=== PATIENT | female | born 1965 | race Caucasian/White ===

== ENCOUNTER 2017-08-24 19:22 | Emergency (ER) | payer OTHER ==
[~2017-08-24] VITALS: Ht 170.2 cm; Wt 102.9 kg
[2017-08-24 19:27] VITALS: TEMP 36.8; Ht 170.2 cm; Wt 102.9 kg
[2017-08-24] MEDS ORDERED: KETOROLAC TROMETHAMINE 30 MG/ML VIAL IV STA (19:38)
[2017-08-24] MEDS ORDERED: KETOROLAC TROMETHAMINE 30 MG/ML VIAL ONE (19:41)
[2017-08-24 20:15] LABS: BASO % 0.4 %; BASO ABS # 0.04 K/uL (0-0.2); EOS % 1.7 %; EOS ABS # 0.16 K/uL (0-0.5); HEMATOCRIT 39.7 % (37-47); HEMOGLOBIN 13.5 g/dL (12.0-16.0); IG# 0.02 K/uL (0.00-0.02); LYMPH % 38.1 %; LYMPH ABS # 3.51 K/uL (1.2-3.4); MEAN CELL VOLUME 85.9 fL (80-100); MEAN CORPUSCULAR HEMOGLOBIN 29.2 pg (25-34); MEAN PLATELET VOLUME 9.3 fL (7.4-10.4); MONO % 10.2 %; MONO ABS # 0.94 K/uL (0.11-0.59); NEUT % 49.4 %; NEUT ABS # 4.54 K/uL (1.4-6.5); PLATELET COUNT 343 K/uL (130-400); RED CELL DISTRIBUTION WIDTH CV 13.1 % (11.5-14.5); RED CELL DISTRIBUTION WIDTH SD 41.1 fL (36.4-46.3); WHITE BLOOD COUNT 9.21 K/uL (4.8-10.8)
[2017-08-24 20:33] LABS: ALBUMIN 3.4 gm/dl (3.4-5.0); CALCIUM 8.9 mg/dl (8.5-10.1); CREATININE 0.76 mg/dl (0.60-1.20); POTASSIUM 3.9 mmol/L (3.5-5.1)
--- NOTE | 2017-08-24 20:35 | DIAGNOSTIC IMAGING REPORT ---
R VENOUS DOPP LOWER EXT UNILAT CLINICAL HISTORY: R medial thigh pain pain TECHNIQUE: Venous Doppler COMPARISON STUDY: None FINDINGS: Normal study IMPRESSION: Normal study The above report was generated using voice recognition software. It may contain grammatical, syntax or spelling errors. Electronically signed by: Avel Jim M.D. 08/24/2017 8:33 PM Dictated Date/Time: 08/24/2017 8:33 PM
[2017-08-24 20:38] LABS: CKMB 2.4 ng/ml (0.5-3.6); TOTAL PROTEIN 7.5 gm/dl (6.4-8.2)
[2017-08-24 21:25] VITALS: BP 115/76; PULSE 76; O2SAT 97
--- NOTE | 2017-08-24 21:27 | DIAGNOSTIC IMAGING REPORT ---
R FEMUR 2 VIEWS ROUTINE CLINICAL HISTORY: Low back pain and R medial thigh pain pain COMPARISON: None. DISCUSSION: The bones and joint spaces appear intact. There is no evidence of fracture, dislocation or bony disease. There is no evidence for soft tissue swelling. IMPRESSION: Negative study. The above report was generated using voice recognition software. It may contain grammatical, syntax or spelling errors. Electronically signed by: Avel Jim M.D. 08/24/2017 9:26 PM Dictated Date/Time: 08/24/2017 9:25 PM
--- NOTE | 2017-08-24 21:28 | DIAGNOSTIC IMAGING REPORT ---
L-SPINE MIN 4 VIEWS ROUTINE HISTORY: Pain Low back pain and R medial thigh pain COMPARISON: None. FINDINGS: There is no fracture. No subluxation. Mild degenerative disc change throughout. IMPRESSION: No fracture or subluxation within the lumbar spine. Mild degenerative disc change. The above report was generated using voice recognition software. It may contain grammatical, syntax or spelling errors. Electronically signed by: Avel Jim M.D. 08/24/2017 9:27 PM Dictated Date/Time: 08/24/2017 9:27 PM
--- NOTE | 2017-08-24 21:34 | EMERGENCY ROOM VISIT NOTE ---
History First contact with patient: 19:31 Chief Complaint: LEG PAIN,LEG INJURY Stated Complaint: LEG PAIN History of Present Illness The patient is a 52 year old female who presents to the Emergency Room with complaints of "leg pain/injury". She presents to us today with right medial thigh pain which began on Wednesday. She rates her pain as a 8/10. She denies any trauma. She had a fever yesterday but feels well today. She points to the right medial proximal thigh. It is worse with ambulation. She is taken Advil with minimal relief. She denies any history of blood clots. She does note a past medical history of hypertension. Minimal pinprick sensation in this region. Review of Systems A complete 6-point Review of Systems was discussed with the patient, with pertinent positives and negatives listed in the History of Present Illness. All remaining Review of Systems questions can be considered negative unless otherwise specified. Past Medical/Surgical History HTN Family History No pertinent Social History Smoking Status: Current Every Day Smoker Pt. lives locally with Physical Exam Vital Signs Date Time Temp Pulse Resp B/P (MAP) Pulse Ox O2 Delivery O2 Flow Rate FiO2 08/24/17 21:25 76 18 115/76 97 Room Air 08/24/17 19:27 36.8 81 18 206/99 97 Room Air Physical Exam VITAL SIGNS - Vital signs and nursing notes were reviewed. Stable. GENERAL - 52-year-old female appearing her stated age who is in no acute distress. Communicates well with provider and answers questions appropriately. SKIN - Without rashes. HEAD - NC/AT.Palpebral conjunctiva pink and moist with no injection noted. EARS - No deformities of external structures noted on gross examination bilaterally. NOSE - Midline and without cyanosis. No epistaxis or purulent drainage noted. MOUTH/OROPHARYNX - Without perioral cyanosis. EXTREMITIES - No clubbing or peripheral cyanosis. No pretibial edema present. Tenderness to palpation of the R medial thigh. NO masses or lesions. No rashes. WNL size and shape. +5/5 strength noted in UE/LE bilaterally. NEUROLOGIC - Cranial nerves II through XII grossly intact. Sensory intact to light touch throughout. PSYCH - A&O, and cooperates fully with examiner. Pt is very pleasant and interacts well with examiner. Medical Decision & Procedures ER Provider Diagnostic Interpretation: R VENOUS DOPP LOWER EXT UNILAT CLINICAL HISTORY: R medial thigh pain pain TECHNIQUE: Venous Doppler COMPARISON STUDY: None FINDINGS: Normal study IMPRESSION: Normal study The above report was generated using voice recognition software. It may contain grammatical, syntax or spelling errors. Electronically signed by: Avel Jim M.D. 08/24/2017 8:33 PM Dictated Date/Time: 08/24/2017 8:33 PM L-SPINE MIN 4 VIEWS ROUTINE HISTORY: Pain Low back pain and R medial thigh pain COMPARISON: None. FINDINGS: There is no fracture. No subluxation. Mild degenerative disc change throughout. IMPRESSION: No fracture or subluxation within the lumbar spine. Mild degenerative disc change. The above report was generated using voice recognition software. It may contain grammatical, syntax or spelling errors. Electronically signed by: Avel Jim M.D. 08/24/2017 9:27 PM Dictated Date/Time: 08/24/2017 9:27 PM R FEMUR 2 VIEWS ROUTINE CLINICAL HISTORY: Low back pain and R medial thigh pain pain COMPARISON: None. DISCUSSION: The bones and joint spaces appear intact. There is no evidence of fracture, dislocation or bony disease. There is no evidence for soft tissue swelling. IMPRESSION: Negative study. The above report was generated using voice recognition software. It may contain grammatical, syntax or spelling errors. Electronically signed by: Avel Jim M.D. 08/24/2017 9:26 PM Dictated Date/Time: 08/24/2017 9:25 PM Laboratory Results 08/24/17 19:55 Red Blood Count 4.62, Mean Corpuscular Volume 85.9, Mean Corpuscular Hemoglobin 29.2, Mean Corpuscular Hemoglobin Concent 34.0, Mean Platelet Volume 9.3, Neutrophils (%) (Auto) 49.4, Lymphocytes (%) (Auto) 38.1, Monocytes (%) (Auto) 10.2, Eosinophils (%) (Auto) 1.7, Basophils (%) (Auto) 0.4, Neutrophils # (Auto ) 4.54, Lymphocytes # (Auto) 3.51, Monocytes # (Auto) 0.94, Eosinophils # (Auto ) 0.16, Basophils # (Auto) 0.04 08/24/17 19:55 Test 08/24/17 16:55 08/24/17 19:55 Lyme Disease IgG Antibody NEG (NEG) White Blood Count 9.21 K/uL (4.8-10.8) Red Blood Count 4.62 M/uL (4.2-5.4) Hemoglobin 13.5 g/dL (12.0-16.0) Hematocrit 39.7 % (37-47) Mean Corpuscular Volume 85.9 fL (80-100) Mean Corpuscular Hemoglobin 29.2 pg (25-34) Mean Corpuscular Hemoglobin Concent 34.0 g/dl (32-36) Platelet Count 343 K/uL (130-400) Mean Platelet Volume 9.3 fL (7.4-10.4) Neutrophils (%) (Auto) 49.4 % Lymphocytes (%) (Auto) 38.1 % Monocytes (%) (Auto) 10.2 % Eosinophils (%) (Auto) 1.7 % Basophils (%) (Auto) 0.4 % Neutrophils # (Auto) 4.54 K/uL (1.4-6.5) Lymphocytes # (Auto) 3.51 K/uL (1.2-3.4) Monocytes # (Auto) 0.94 K/uL (0.11-0.59) Eosinophils # (Auto) 0.16 K/uL (0-0.5) Basophils # (Auto) 0.04 K/uL (0-0.2) RDW Standard Deviation 41.1 fL (36.4-46.3) RDW Coefficient of Variation 13.1 % (11.5-14.5) Immature Granulocyte % (Auto) 0.2 % Immature Granulocyte # (Auto) 0.02 K/uL (0.00-0.02) Anion Gap 7.0 mmol/L (3-11) Est Creatinine Clear Calc Drug Dose 106.8 ml/min Estimated GFR () 104.5 Estimated GFR (Non- 90.2 BUN/Creatinine Ratio 12.7 (10-20) Calcium Level 8.9 mg/dl (8.5-10.1) Total Bilirubin 0.4 mg/dl (0.2-1) Aspartate Amino Transf (AST/SGOT) 18 U/L (15-37) Alanine Aminotransferase (ALT/SGPT) 16 U/L (12-78) Alkaline Phosphatase 149 U/L (45-117) Total Creatine Kinase 186 U/L (26-192) Creatine Kinase MB 2.4 ng/ml (0.5-3.6) Creatine Kinase MB Ratio 1.3 (0-3.0) Total Protein 7.5 gm/dl (6.4-8.2) Albumin 3.4 gm/dl (3.4-5.0) Globulin 4.1 gm/dl (2.5-4.0) Albumin/Globulin Ratio 0.8 (0.9-2) Medications Administered Medications (Trade) Dose Ordered Sig/Yolanda Route Start Time Stop Time Status Last Admin Dose Admin Ketorolac Tromethamine (Toradol Inj) 30 mg NOW STAT IV 08/24/17 19:38 08/24/17 19:41 DC 08/24/17 19:38 30 MG Medical Decision Patient was seen and evaluated as above in room D7. Review was performed of nursing notes and vital signs. After obtaining a thorough history and physical examination the above work up was performed. X-ray was obtained of the low back and the right femur as well as ultrasound of the right lower extremity. These are all negative. No acute process. CBC reveals no concerning leukocytosis or anemia. Metabolic panel reveals no evidence of kidney or liver failure. Alk phos has increased. She was educated upon this and is to follow- up. Lyme testing pending. She is to follow with the family doctor. I suspect musculoskeletal etiology. Excellent distal pulses. No DVT. This is likely either a pulled muscle, muscle spasm or nerve irritation. She will be given a walker to help with ambulation. The patient was educated upon management, had questions answered prior to discharge, and was discharged home in good condition. She was given Toradol here for pain. She notes she will use [id number] medication for pain. Case was discussed with the attending physician. In the evaluation and treatment of this patient, the following differential diagnoses were considered: Hip Fracture, Hip Dislocation, Greater Trochanteric Bursitis, Musculoskeletal Pain, Lumbar Radiculopathy. Additionally, the patient did have Lyme disease testing which was pending. After she was discharged the results were obtained and the IgM was equivocal. Given that her presentation could be from Lyme I will empirically treat this pending bands testing. This will be doxycycline 100 mg twice daily 21 days. I did attempt to call the patient and left a message for her to call back here to the emergency department to be given instructions that she is to take this medication because the findings and follow with her family doctor for further evaluation and management. Impression Primary Impression: Leg pain, right Departure Information Dispostion Home / Self-Care Condition GOOD Prescriptions Doxycycline (Monohydrate) (Doxycycline) 100 Mg Cap 100 MG PO BID for 21 Days, #42 TABS Prov: BrandonLevar PA-C 08/25/17 Referrals No Doctor, Assigned (PCP) Patient Instructions My [facility] Additional Instructions You have been treated in the Emergency Department for R leg pain. For pain control, you can use the following [id number] medicines: - Regular strength (325mg/tab) Tylenol (acetaminophen) 2 tabs every 4-6 hours as needed. Do not exceed 12 tablets in a 24 hour period. Avoid taking more than 3 grams (3000 mg) of Tylenol per day. This includes any other sources of acetaminophen you may take on a regular basis. - Regular strength (200 mg/tab) Advil (ibuprofen) 1-2 tabs every 4-6 hours as needed. Do not exceed a dose of 3200 mg per day. If this is a recent injury (<24 hrs), ice can be applied to the area of pain for the first 3 days to help decrease pain and inflammation. Ice massages can be performed by freezing water in a paper cup, peeling back the cup to expose the ice and then massaging over the affected area. Use the walker to keep weight off of the R leg as much as possible. Please call your family doctor to schedule follow up as soon as possible. Return to the Emergency Department if your current symptoms worsen despite treatment course outlined above.
[2017-08-25] MEDS ORDERED: DOXY-300 PO (15:13)
--- NOTE | 2017-08-25 15:41 | Pharmacy Progress Note ---
ED Pharmacist Culture FollowUp Date of Service: Aug 25, 2017. Per Levar Taylor's request, I called in a prescription for doxycycline 100mg BID X 21 days for positive lymes to the confirmed pharmacy of [facility]. I also informed the patient of the result and the new prescription.
[2017-09-01] MEDS ORDERED: ULT50X PO (13:19)
[2017-09-01] MEDS ORDERED: MISC-573 (13:45)
== END 2017-08-24 22:31 | disposition home or self-care (01) ==
LOC: C.EDB 19:23 → C.EDD 22:31
DX: M79.651 Pain in right thigh (principal); R74.8 Abnormal levels of other serum enzymes; I10 Essential (primary) hypertension; F17.200 Nicotine dependence, unspecified, uncomplicated

== ENCOUNTER 2017-08-30 17:57 | Inpatient (IN) | payer OTHER ==
[~2017-08-30] VITALS: Ht 175.3 cm; Wt 99.2 kg
[~2017-08-30 17:57] MED LIST: DOXY-300 PO
[2017-08-30 19:38] LABS: BASO % 0.4 %; BASO ABS # 0.05 K/uL (0-0.2); EOS % 0.8 %; EOS ABS # 0.09 K/uL (0-0.5); HEMATOCRIT 39.4 % (37-47); HEMOGLOBIN 13.4 g/dL (12.0-16.0); IG# 0.04 K/uL (0.00-0.02); LYMPH ABS # 3.24 K/uL (1.2-3.4); MEAN CELL VOLUME 84.9 fL (80-100); MEAN CORPUSCULAR HEMOGLOBIN 28.9 pg (25-34); MEAN PLATELET VOLUME 9.2 fL (7.4-10.4); MONO % 7.5 %; MONO ABS # 0.84 K/uL (0.11-0.59); NEUT % 61.9 %; NEUT ABS # 6.91 K/uL (1.4-6.5); PLATELET COUNT 355 K/uL (130-400); RED CELL DISTRIBUTION WIDTH SD 39.7 fL (36.4-46.3); WHITE BLOOD COUNT 11.17 K/uL (4.8-10.8)
--- NOTE | 2017-08-30 20:50 | DIAGNOSTIC IMAGING REPORT ---
MRI OF THE LUMBAR SPINE WITH AND WITHOUT CONTRAST CLINICAL HISTORY: Right 5 pain. Back pain. Unable to walk. COMPARISON STUDY: Lumbar spine radiograph August 24, 2017. TECHNIQUE: Utilizing a 1.5 Ellie magnet and dedicated coil, multiplanar, multiecho imaging of the lumbar spine was performed before and after uneventful IV administration of 10 mL of Gadavist. FINDINGS: For purposes of numbering on this exam, the L5-S1 disc space is assigned to axial image 27 of 30. Alignment of lumbar spine is anatomic. There is slight loss of height of the superior plate of L2. There are innumerable T1 and T2 hypointense lesions within the visualized skeletal structures which have a peripheral T1 and T2 hyperintense rim. There is associated marrow edema and enhancement. These include a 2.2 cm T12 vertebral body lesion and a 2.3 cm L3 vertebral body lesion. There is a left iliac bone lesion which is partially imaged on this exam which measures at least 2.7 cm. No epidural extension of tumor is noted. There may be slight extension of soft tissue into the left L5-S1 neural foramen. A 3.2 cm right ovarian lesion is incidentally noted. The conus terminates at the mid L1 level. L1-2: There is minimal disc bulge. The central canal and neural foramen are patent. L2-3: There is mild disc bulge. There is mild narrowing of the central canal, lateral recesses and neural foramen. L3-4: There is minimal disc bulge and ligamentous hypertrophy. There is minimal narrowing of the central canal and lateral recesses. The neural foramen are patent. L4-5: There is disc bulge with ligamentous hypertrophy and facet arthrosis. There is moderate narrowing of the central canal, lateral recesses and mild narrowing of both neural foramen. L5-S1: There is disc bulge with ligamentous hypertrophy and facet arthrosis. There is moderate narrowing of the central canal, lateral recesses and mild narrowing of both neural foramen. IMPRESSION: 1. Innumerable enhancing skeletal lesions which are highly suggestive of metastatic disease. Myeloma or lymphoma could appear similar although are considered less likely. Correlation with known primary malignancy is recommended. No epidural extension of tumor. Slight loss of height of the superior endplate of L2. Possible slight extension into the left L5-S1 neural foramen. 2. Mild to moderate multilevel degenerative changes, as described above. Electronically signed by: Manav Ruggiero M.D. 08/30/2017 8:49 PM Dictated Date/Time: 08/30/2017 8:39 PM
[2017-08-30 21:06] LABS: ALBUMIN 3.6 gm/dl (3.4-5.0); CALCIUM 8.8 mg/dl (8.5-10.1); CREATININE 0.94 mg/dl (0.60-1.20)
[2017-08-30 21:11] LABS: POTASSIUM 3.9 mmol/L (3.5-5.1)
[2017-08-30] MEDS ORDERED: KETOROLAC TROMETHAMINE 30 MG/ML VIAL IV STA (21:20)
[2017-08-30] MEDS ORDERED: DOXY100C76 PO (21:43)
[2017-08-30] MEDS ORDERED: LIDODERM (LIDOCAINE) PATCH 5% TD STA (21:56)
--- NOTE | 2017-08-30 22:43 | EMERGENCY ROOM VISIT NOTE ---
History First contact with patient: 18:28 Chief Complaint: LEG PAIN,LEG INJURY Stated Complaint: MUSCLE PAIN IN RT LEG History of Present Illness The patient is a 52 year old female who presents to the Emergency Room via private vehicle accompanied by [id number] with complaints of "muscle pain in right leg". The patient states that she was seen here recently and has persistence of her right leg pain. It is worsened. It is of the right medial thigh more anterior, and is worse with ambulation. She describes it similar to that of a bad toothache. She has tried Advil without relief. She also notes that she is taking the doxycycline for potential Lyme disease. She denies any trauma or injury. She notes chills. She denies any chest pain, shortness of breath, fevers. No dysuria or abdominal pain. She states that she does feel ill today but no fever. Review of Systems A complete 10-point Review of Systems was discussed with the patient, with pertinent positives and negatives listed in the History of Present Illness. All remaining Review of Systems questions can be considered negative unless otherwise specified. Past Medical/Surgical History Medical Problems: (1) Leg pain Social History Smoking Status: Never Smoker Patient lives locally. Current/Historical Medications Scheduled Doxycycline Monohydrate (Monodox), 100 MG PO BID Physical Exam Vital Signs Date Time Temp Pulse Resp B/P (MAP) Pulse Ox O2 Delivery O2 Flow Rate FiO2 08/30/17 21:38 76 18 181/103 96 Room Air 08/30/17 18:22 36.5 78 16 194/92 98 Room Air Physical Exam VITAL SIGNS - Vital signs and nursing notes were reviewed. Stable. Hypertensive. GENERAL -52-year-old female appearing her stated age who is in no acute distress. Communicates well with provider and answers questions appropriately. SKIN - Without rashes. No meningeal or petechial rashes. HEAD - NC/AT. EYES - Sclera anicteric. EARS - No deformities of external structures noted on gross examination bilaterally. NOSE - Midline and without cyanosis. No epistaxis or purulent drainage noted. Septum midline without deviation or septal hematoma noted. MOUTH/OROPHARYNX - Without perioral cyanosis. LUNGS - Chest wall symmetric without accessory muscle use, intercostals retractions, or central cyanosis. Normal vesicular breath sounds CTA B/L. No wheezes, rales, or rhonchi appreciated. CARDIAC - RRR with S1/S2. No murmur, rubs, or gallops appreciated. MUSCULOSKELETAL: Minimal tenderness of the right leg and no tenderness of the spine. EXTREMITIES - No clubbing or peripheral cyanosis. No pretibial edema present. +5 /5 strength noted in UE/LE bilaterally. NEUROLOGIC - Cranial nerves II through XII grossly intact. Sensory intact to light touch throughout. PSYCH - A&O, and cooperates fully with examiner. Pt is very pleasant and interacts well with examiner. Medical Decision & Procedures ER Provider Diagnostic Interpretation: MRI OF THE LUMBAR SPINE WITH AND WITHOUT CONTRAST CLINICAL HISTORY: Right 5 pain. Back pain. Unable to walk. COMPARISON STUDY: Lumbar spine radiograph August 24, 2017. TECHNIQUE: Utilizing a 1.5 Ellie magnet and dedicated coil, multiplanar, multiecho imaging of the lumbar spine was performed before and after uneventful IV administration of 10 mL of Gadavist. FINDINGS: For purposes of numbering on this exam, the L5-S1 disc space is assigned to axial image 27 of 30. Alignment of lumbar spine is anatomic. There is slight loss of height of the superior plate of L2. There are innumerable T1 and T2 hypointense lesions within the visualized skeletal structures which have a peripheral T1 and T2 hyperintense rim. There is associated marrow edema and enhancement. These include a 2.2 cm T12 vertebral body lesion and a 2.3 cm L3 vertebral body lesion. There is a left iliac bone lesion which is partially imaged on this exam which measures at least 2.7 cm. No epidural extension of tumor is noted. There may be slight extension of soft tissue into the left L5-S1 neural foramen. A 3.2 cm right ovarian lesion is incidentally noted. The conus terminates at the mid L1 level. L1-2: There is minimal disc bulge. The central canal and neural foramen are patent. L2-3: There is mild disc bulge. There is mild narrowing of the central canal, lateral recesses and neural foramen. L3-4: There is minimal disc bulge and ligamentous hypertrophy. There is minimal narrowing of the central canal and lateral recesses. The neural foramen are patent. L4-5: There is disc bulge with ligamentous hypertrophy and facet arthrosis. There is moderate narrowing of the central canal, lateral recesses and mild narrowing of both neural foramen. L5-S1: There is disc bulge with ligamentous hypertrophy and facet arthrosis. There is moderate narrowing of the central canal, lateral recesses and mild narrowing of both neural foramen. IMPRESSION: 1. Innumerable enhancing skeletal lesions which are highly suggestive of metastatic disease. Myeloma or lymphoma could appear similar although are considered less likely. Correlation with known primary malignancy is recommended. No epidural extension of tumor. Slight loss of height of the superior endplate of L2. Possible slight extension into the left L5-S1 neural foramen. 2. Mild to moderate multilevel degenerative changes, as described above. Electronically signed by: Manav Ruggiero M.D. 08/30/2017 8:49 PM Dictated Date/Time: 08/30/2017 8:39 PM Laboratory Results 08/30/17 19:10 Red Blood Count 4.64, Mean Corpuscular Volume 84.9, Mean Corpuscular Hemoglobin 28.9, Mean Corpuscular Hemoglobin Concent 34.0, Mean Platelet Volume 9.2, Neutrophils (%) (Auto) 61.9, Lymphocytes (%) (Auto) 29.0, Monocytes (%) (Auto) 7.5, Eosinophils (%) (Auto) 0.8, Basophils (%) (Auto) 0.4, Neutrophils # (Auto) 6.91, Lymphocytes # (Auto) 3.24, Monocytes # (Auto) 0.84, Eosinophils # (Auto) 0.09, Basophils # (Auto) 0.05 08/30/17 19:10 Test 08/30/17 19:10 08/30/17 21:53 White Blood Count 11.17 K/uL (4.8-10.8) Red Blood Count 4.64 M/uL (4.2-5.4) Hemoglobin 13.4 g/dL (12.0-16.0) Hematocrit 39.4 % (37-47) Mean Corpuscular Volume 84.9 fL (80-100) Mean Corpuscular Hemoglobin 28.9 pg (25-34) Mean Corpuscular Hemoglobin Concent 34.0 g/dl (32-36) Platelet Count 355 K/uL (130-400) Mean Platelet Volume 9.2 fL (7.4-10.4) Neutrophils (%) (Auto) 61.9 % Lymphocytes (%) (Auto) 29.0 % Monocytes (%) (Auto) 7.5 % Eosinophils (%) (Auto) 0.8 % Basophils (%) (Auto) 0.4 % Neutrophils # (Auto) 6.91 K/uL (1.4-6.5) Lymphocytes # (Auto) 3.24 K/uL (1.2-3.4) Monocytes # (Auto) 0.84 K/uL (0.11-0.59) Eosinophils # (Auto) 0.09 K/uL (0-0.5) Basophils # (Auto) 0.05 K/uL (0-0.2) RDW Standard Deviation 39.7 fL (36.4-46.3) RDW Coefficient of Variation 13.0 % (11.5-14.5) Immature Granulocyte % (Auto) 0.4 % Immature Granulocyte # (Auto) 0.04 K/uL (0.00-0.02) Anion Gap 10.0 mmol/L (3-11) Est Creatinine Clear Calc Drug Dose 89.1 ml/min Estimated GFR () 80.8 Estimated GFR (Non- 69.8 BUN/Creatinine Ratio 12.5 (10-20) Calcium Level 8.8 mg/dl (8.5-10.1) Total Bilirubin 0.2 mg/dl (0.2-1) Aspartate Amino Transf (AST/SGOT) 46 U/L (15-37) Alanine Aminotransferase (ALT/SGPT) 22 U/L (12-78) Alkaline Phosphatase 176 U/L (45-117) Total Protein 8.0 gm/dl (6.4-8.2) Albumin 3.6 gm/dl (3.4-5.0) Globulin 4.4 gm/dl (2.5-4.0) Albumin/Globulin Ratio 0.8 (0.9-2) Medications Administered Medications (Trade) Dose Ordered Sig/Yolanda Route Start Time Stop Time Status Last Admin Dose Admin Ketorolac Tromethamine (Toradol Inj) 30 mg NOW STAT IV 08/30/17 21:20 08/30/17 21:21 DC 08/30/17 21:37 30 MG Medical Decision Patient was seen and evaluated as above in room D4. I personally took care of this patient on her most recent visit. I had performed x-rays of the L-spine, right femur and had an ultrasound of the right lower extremity to rule out DVT done and were essentially negative then. The Lyme IgM was equivocal. She was notified to begin doxycycline pending band testing. I suspect her equivocal Lyme disease testing is separate from her presentation today. Her presentation was that of right thigh pain which appear to be radicular from the low back. She now has great difficulty with ambulating compared to before. Review was performed of nursing notes and vital signs. After obtaining a thorough history and physical examination the above work up was performed. Decision was made to obtain MRI of the L-spine. This was performed because of the likely radicular nature of her pain and now increased difficulty with ambulation. Results as above. 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 Patient was thoroughly educated upon this to the best of my ability given testing results. Case was discussed with the attending physician. Blood work was also obtained and there is now interval development of leukocytosis. Alk phos elevation now. I do believe that inpatient management is warranted for pain control/ arranging follow up for suspected metastatic disease. She declined high-strength pain meds. She was given Toradol. I did discuss the case with the hospitalist who will further workup. Please refer to for the documentation regarding her stay. Case was discussed with the attending physician. In the evaluation and treatment of this patient the following differential diagnoses were entertained: Lumbar radiculopathy, bulging disks, Malignancy, among others. Impression Primary Impression: Leg pain, right Additional Impression: skeletal lesions of lumbar spine found on MRI Departure Information Dispostion Admitted as an inpatient Condition FAIR Referrals Aisha Bello D.O. (PCP) Patient Instructions My [facility] Problem Qualifiers
[2017-08-30] MEDS ORDERED: LISINOPRIL 5 MG TAB PO STA (22:48)
--- NOTE | 2017-08-30 22:51 | DIAGNOSTIC IMAGING REPORT ---
CHEST ONE VIEW PORTABLE CLINICAL HISTORY: Back pain. COMPARISON STUDY: No previous studies for comparison. FINDINGS: Lung volumes are mildly diminished. No pneumothorax or pleural effusion is noted. There is no evidence for pulmonary edema. There is no consolidation. Cardiac size is at the upper limits of normal. IMPRESSION: No acute cardiopulmonary findings. Electronically signed by: Manav Ruggiero M.D. 08/30/2017 10:49 PM Dictated Date/Time: 08/30/2017 10:48 PM
[2017-08-30] MEDS ORDERED: INSULIN ASPART 100 UNITS/ML 3 ML PEN SC ONE (22:54)
[2017-08-30] MEDS ORDERED: LACTATED RINGER'S 1000ML 1,000 ML IV ONE (23:00)
[2017-08-30] MEDS ORDERED: GLUCOSE 40% GEL 15 GM TUBE PO PRN (23:00)
[2017-08-30] MEDS ORDERED: GLUCOSE 10 TABS/TUBE PO PRN (23:00)
[2017-08-30] MEDS ORDERED: PROCHLORPERAZINE INJ 5 MG in SYRINGE 4 ML IV PRN (23:00)
[2017-08-30] MEDS ORDERED: GLUCAGON FOR INJ 1 MG VIAL SQ PRN (23:00)
[2017-08-30] MEDS ORDERED: LORAZEPAM 2 MG/ML 1 ML VIAL IV PRN (23:00)
[2017-08-30] MEDS ORDERED: ACETAMINOPHEN 325 MG TAB PO PRN (23:00)
[2017-08-30] MEDS ORDERED: OPTIRAY 320 IV PRN (23:00)
[2017-08-30] MEDS ORDERED: DEXTROSE 50% 50 ML SYR IV PRN (23:00)
[2017-08-30] MEDS ORDERED: MoRPHine SULFATE 4 MG/ML 1 ML CARP\\VIAL IV PRN (23:00)
[2017-08-30] MEDS ORDERED: IV FLUIDS COMPLETED PRN (23:00)
[2017-08-30] MEDS ORDERED: ATOR10TA82 PO (23:21)
[2017-08-30 23:57] VITALS: BP 188/94; PULSE 79; TEMP 36.8; O2SAT 95; BMI 32.8
[2017-08-31] VITALS (7 sets, daily range): BP systolic 157–176; BP diastolic 82–96; PULSE 66–76; TEMP 36.8–37.1; O2SAT 91–95
[2017-08-31 06:13] LABS: BASO % 0.4 %; BASO ABS # 0.04 K/uL (0-0.2); EOS % 0.9 %; EOS ABS # 0.09 K/uL (0-0.5); HEMATOCRIT 39.9 % (37-47); HEMOGLOBIN 13.6 g/dL (12.0-16.0); IG# 0.04 K/uL (0.00-0.02); LYMPH % 29.6 %; LYMPH ABS # 3.09 K/uL (1.2-3.4); MEAN CELL VOLUME 84.4 fL (80-100); MEAN CORPUSCULAR HEMOGLOBIN 28.8 pg (25-34); MEAN CORPUSCULAR HGB CONC 34.1 g/dl (32-36); MEAN PLATELET VOLUME 9.2 fL (7.4-10.4); MONO % 8.1 %; MONO ABS # 0.85 K/uL (0.11-0.59); NEUT % 60.6 %; NEUT ABS # 6.33 K/uL (1.4-6.5); PLATELET COUNT 340 K/uL (130-400); RED CELL DISTRIBUTION WIDTH CV 12.9 % (11.5-14.5); RED CELL DISTRIBUTION WIDTH SD 39.5 fL (36.4-46.3); WHITE BLOOD COUNT 10.44 K/uL (4.8-10.8)
--- NOTE | 2017-08-31 06:27 | HISTORY & PHYSICAL EXAMINATION ---
DATE OF ADMISSION: 08/30/2017 PRIMARY CARE DOCTOR: Dr. Bello. CHIEF COMPLAINT: Right leg pain. HISTORY OF PRESENT ILLNESS: History obtained from patient, [id number], and records. Limited history from the patient secondary to language barrier. Medical history significant for hypertension, hyperlipidemia, DM2, diet controlled. Patient has had vague back pain symptoms for about a month or two. Last week, she had achy pain on the right thigh, sometimes going to her back. No weakness. No urinary/bowel incontinence. Low-grade fever. Pain worse with motion. No unusual headaches. Intentional weight loss of about 9 pounds in the last few months. Seen at the Emergency Room last week. LE Venous Dopplers negative for clot. Back x-ray, mild degenerative change. Lyme screen equivocal, hx tick bite from some time ago. Patient prescribed Doxycycline. At home, worsening pain in the right thigh, achy, sharp. MEDICAL HISTORY: As above. No new breast lumps Normal mammogram from May 2017. Cologuard from July 2017 was negative. Pap smear from July 2017 was negative for malignancy or suspicious cells. SURGERIES: Cholecystectomy, tubal ligation HOME MEDICATIONS: Include atorvastatin. FAMILY HISTORY: Diabetes, hypertension. No cancers. PERSONAL AND SOCIAL HISTORY: Nonsmoker, no EtOH intake, hotel housekeeper. Originally from [facility]. REVIEW OF SYSTEMS: As per HPI, all 10 systems reviewed, all other ROS negative. PHYSICAL EXAMINATION: VITAL SIGNS: Blood pressure was noted to be 194/92 later 180/80, OK 90, RR 18 T 37, O2 sats 96 on room air. GENERAL: Noted to be pleasant, slightly uncomfortable, no respiratory distress. Obese. SKIN: Normal color, warm. HEENT: [place] palpebral conjunctivae. No ptosis. Dry mucosa. NECK: Short, supple, nontender. CHEST: Clear to auscultation. No tenderness. HEART: Regular rate and rhythm, no murmur. ABDOMEN: Some distention, non tender. BACK: Minimal mid back tenderness. EXTREMITIES: Tenderness, right thigh. Right thigh slightly bigger than the left, no other gross deformity. NEUROLOGIC: Coherent, no gross focality. LABORATORY STUDIES: Hemoglobin was noted to be 14, white cell count 11.17, platelets 255. Sodium noted to be 141, potassium 3.9, chloride 106, CO2 25, BUN 12, creatinine 0.9, glucose 163, alkaline phosphatase 176. CK 263 Hemoglobin A1c from May 2017 was 6.7. Chest x-ray, no acute cardiopulmonary findings. MRI showed multiple skeletal lesions suggestive of metastatic disease, myeloma or lymphoma could appear similar, although less likely. No epidural extension of tumor. ASSESSMENT: 1. Metastatic bone disease unknown primary. 2. Right lower extremity pain mets vs primary lesion. 3. Hypertension, elevated secondary to pain, anxiety Not on any home maintenance meds. 4. DM2, diet controlled, well controlled as of recent outpatient hemoglobin A1c. 5. Abnormal Lyme screen ongoing doxycycline Rx Past history of tick bite PLAN: Observation GMF analgesia. CT chest, abdomen and pelvis, right thigh for tumor surveillance Oncology consult RE additional workup/mx for bone metastases, primary to be determined Initiate lisinopril for blood pressure control ISS BG goal 140-180. PT eval. DVT prophylaxis, Lovenox subQ. Full code. Patient's daughter in law requesting updates from providers. Miss Sangeeta Lopez at [phone]. MTDD
[2017-08-31 06:42] LABS: CALCIUM 8.7 mg/dl (8.5-10.1); CREATININE 0.66 mg/dl (0.60-1.20); POTASSIUM 3.9 mmol/L (3.5-5.1)
--- NOTE | 2017-08-31 07:06 | DIAGNOSTIC IMAGING REPORT ---
CT OF THE CHEST WITH IV CONTRAST CLINICAL HISTORY: Metastatic disease COMPARISON STUDY: Chest x-ray dated 08/30/2017 TECHNIQUE: Following the IV administration of 123 mL of Optiray-320, CT of the thorax was performed from the thoracic inlet to the lung bases. Images are reviewed in the axial, sagittal, and coronal planes. IV contrast was administered without complication. A dose lowering technique was utilized adhering to the principles of ALARA. CT DOSE: FINDINGS: Thyroid: There is a 7 mm right lobe thyroid nodule. Thoracic aorta: The thoracic aorta is normal in course and caliber, noting standard 3-vessel arch anatomy. No aneurysm or dissection is seen. Pulmonary vasculature: The pulmonary trunk is normal in caliber. There are no central filling defects identified to suggest pulmonary embolus. Note that this examination was not protocoled for the evaluation of pulmonary emboli. HEART: The heart is normal in size and configuration, without pericardial effusion. Lungs and pleural spaces: There are dependent atelectatic changes. There is a 19 mm left lower lobe lung cyst. There is no focal pulmonary consolidation. Mediastinum: Mediastinal lymph nodes are the upper limits of normal in size. [place]: Hilar lymph nodes are the upper limits of normal in size. Axilla: There is no evidence of pathologic axillary lymphadenopathy Upper abdomen: There are multiple hepatic masses. These include 2 left lobe masses measuring 6 cm and 4.6 cm respectively. There is also a 5.3 cm right lobe hepatic mass. Skeletal structures: There are multiple sclerotic lesions suspicious for metastatic disease. IMPRESSION: 1. Multiple sclerotic skeletal lesions, suspicious for metastasis 2. Multiple liver masses highly suspicious for metastasis 3. No findings to indicate a lung primary Electronically signed by: Sunil Desai M.D. 08/31/2017 7:04 AM Dictated Date/Time: 08/31/2017 6:58 AM
--- NOTE | 2017-08-31 07:50 | DIAGNOSTIC IMAGING REPORT ---
R LOWER EXTREMITY WITH CLINICAL HISTORY: 52 years-old Female presenting with R thigh pain swelling, clinical concern for osseous metastatic disease. TECHNIQUE: Multidetector CT of the right femur was performed after the administration of intravenous contrast. IV contrast: 123 mL of Optiray 320. A dose lowering technique was used consistent with the principles of ALARA (as low as reasonably achievable). COMPARISON: Plain radiograph from 08/24/2017. CT DOSE (mGy.cm): The estimated cumulative dose is 3296.34 mGy.cm. FINDINGS: [employer] topogram: Unremarkable. Soft tissues of the right thigh within normal limits. Vasculature patent. No lymphadenopathy. Few vague sclerotic lesions suggested in the pelvis, which are marked on the images. Degenerative changes of the right hip joint with joint space loss most severe posteriorly, where there is the greatest degree of cystic change in the acetabulum. Vague sclerotic lesion noted at the basicervical region of the right femoral neck as well as within the medullary cavity of the diaphysis. At one of these sites in the mid to distal diaphysis, there is associated minimal irregularity and erosion of the inner aspect of the cortex (series 10 image 301). No evidence of a fracture. No periosteal reaction or full-thickness erosion of the cortex. Additional sclerotic lesion noted in the medial metadiaphysis. No acute fracture or subluxation. No knee joint effusion. IMPRESSION: 1. Multiple vague sclerotic lesions in the pelvis and right femur concerning for osseous metastatic disease. 2. Degenerative changes of the right hip. Electronically signed by: Aneesh Shields M.D. 08/31/2017 7:48 AM Dictated Date/Time: 08/31/2017 7:19 AM
[2017-08-31] MEDS ORDERED: ENOXAPARIN 40 MG/0.4 ML SYR SQ SCH (08:00)
--- NOTE | 2017-08-31 08:07 | DIAGNOSTIC IMAGING REPORT ---
ADDENDUM ADDENDUM: The examination was reviewed with Dr. Hutchins from radiation oncology due to significant right-sided hip and groin pain. There is a subtle nondistracted fracture of the right inferior pubic ring, best seen on axial image #493. All additional findings remain unchanged. Electronically signed by: Jose Mahajan M.D. 09/03/2017 8:39 AM Dictated Date/Time: 09/03/2017 8:[address] SCAN OF THE ABDOMEN AND PELVIS WITH IV CONTRAST CLINICAL HISTORY: Osseous metastatic disease. COMPARISON STUDY: MRI of the lumbar spine dated 08/30/2017. TECHNIQUE: Following the IV administration of 123 cc of Optiray 320, CT scan of the abdomen and pelvis is performed from the lung bases to the proximal femora. Images are reviewed in the axial, sagittal, and coronal planes. IV contrast was administered without complication. A dose lowering technique was utilized adhering to the principles of ALARA. FINDINGS: Lung bases: The heart is normal in size and without pericardial effusion. The lung bases are clear noting dependent atelectasis. There is a small hiatal hernia. Liver: The contrast-enhanced liver is normal in size, contour, and attenuation. There is no intrahepatic biliary ductal dilatation. The hepatic veins and portal veins are patent. There are numerous (greater than 15) large low-attenuation hepatic lesions consistent with multifocal hepatic metastatic disease. The largest lesion in the right lobe is seen on image #62 and measures 5.7 x 3.7 cm. The largest lesion in the left lobe seen on image #111 and measures 5.5 x 4.8 cm. Gallbladder: Surgically absent noting clips in the gallbladder fossa. Spleen: Normal in size and attenuation. Pancreas: Unremarkable. Adrenal glands: Unremarkable. Kidneys: The contrast enhanced kidneys are normal in size and without hydronephrosis. The kidneys enhance symmetrically. Abdominal vasculature: The abdominal aorta is normal in course and caliber noting mild atherosclerotic calcification. Bowel: No bowel obstruction is identified. There is an irregular mass lesion along the posterior margin of the rectum in the right presacral/precoccygeal region seen on image #441. This measures 7.0 x 2.3 cm. The appendix is well-visualized and normal. Peritoneum: There is no intraperitoneal free air or abdominal ascites. Lymphadenopathy: None. Pelvic viscera: The bladder is filled with excreted contrast and is normal as imaged. The uterus is normal as visualized. A 3.8 cm indeterminant lesion is noted in the right ovary on image #387. Skeletal structures: Findings are consistent with diffuse/multifocal osteoblastic metastatic disease. Lesions are seen throughout the spine, the bony pelvis, and the proximal femora. A lesion within associated soft tissue component is seen involving the left anterior fourth rib. There is no evidence of pathologic fracture. IMPRESSION: 1. Findings are consistent with multifocal hepatic metastatic disease. 2. There is multifocal osteoblastic metastatic disease. 3. There is a large irregular soft tissue lesion identified in the right presacral/precoccygeal region along the posterior right aspect of the rectum. This is also concerning for neoplasm. 4. An indeterminant 3.8 cm lesion is noted in the right ovary. Consider pelvic ultrasound in follow-up. 5. No acute infectious or inflammatory findings are identified in the abdomen or pelvis. Electronically signed by: Jose Mahajan M.D. 08/31/2017 8:06 AM Dictated Date/Time: 08/31/2017 7:53 AM
[2017-08-31] MEDS: DOXYCYCLINE HYCLATE 100 MG CAP PO SCH ×2 (08:33→21:26)
[2017-08-31] MEDS: INSULIN ASPART 100 UNITS/ML 3 ML PEN SC SCH ×4 (08:34→21:00)
[2017-08-31] MEDS: LIDODERM (LIDOCAINE) PATCH 5% TD SCH (09:26)
--- NOTE | 2017-08-31 09:29 | Gastrointestinal Consultation ---
Gastrointestinal Consultation Date of Consultation: Aug 31, 2017 Attending Physician: Dr. Pulido Consulting Physician: Dr. Spicer Reason for Consultation: Evaluation for possible rectal lesion History of Present Illness Patient is a 52 year old female patient of Dr. Aisha Bello with a hx of HTN , Hyperlipidemia, DM-2 diet controlled who was brought to the ED last week for vague lower back pain and fever but discharged after obtaining Doppler US and back x-rays. The Lyme screen was equivocal. She had a tic bite previously and was tx with doxycycline. She returned to the ED yesterday for worsened back pain and right thigh pain. She has also had a 10 lbs weight loss but was trying to loose weight. GI is consulted urgently for question of a rectal lesion. Of note, Cordguard was (-) in July. On CT, there is suggestion of a soft tissue mass to the posterior/right of the rectum as well as multiple hepatic metastasis. The pt denies any abdominal pain , nausea, vomiting or change in bowel habits. She reports irregular stooling patterns at baseline. She also has small amts of bright red blood with stools occasionally and has a hx of hemorrhoids. Past Medical/Surgical History Medical Problems: (1) Leg pain, right Status: Acute (2) Leg pain, right Status: Acute Past Medical History: 1. Hypertension 2. Hyperlipidemia 3. Diabetes type2, diet controlled. 4. Back pain 5. Tic bite. Past Surgical History: 1. Cholecystectomy 2. No prior endoscopy Social History Smoking Status: Never Smoker Alcohol Use: none Drug Use: none Housing Status: lives with family Occupation Status: employed (cleans houses) Allergies Coded Allergies: No Known Allergies (Unverified , 08/30/17) Current Medications Home Meds and Scripts Medications Dose Route/Sig Max Daily Dose Days Date Category Dose Instructions Lipitor (Atorvastatin Calcium) 10 Mg Tab 10 Mg PO DAILY 08/30/17 Reported Monodox (Doxycycline Monohydrate) 100 Mg Cap 100 Mg PO BID 08/30/17 Reported BEGIN 08/25/17 X 21 DAYS Review of Systems Constitutional: No fever, No chills, No sweats, No weight loss, No weakness Eyes: No eye pain, No redness ENT: No sore throat, No trouble swallowing, No pain on swallowing Respiratory: No cough, No wheezing, No shortness of breath, No dyspnea on exertion Cardiac: No chest pain, No edema, No palpitations Abdomen: + see HPI, + GI bleeding (hemorrhoidal), No pain, No nausea, No vomiting, No diarrhea, No constipation Neuro: No memory loss, No weakness, No numbness/tingling, No vertigo, No balance problems Psych: No depression symptoms, No anxiety, No insomnia Heme: No abnormal bleeding/bruising, No night sweats Endo: No excessive thirst, No excessive urination Skin: No rash, No itch, No new/changing skin lesions, No jaundice Physical Exam Date Time Temp Pulse Resp B/P (MAP) Pulse Ox O2 Delivery O2 Flow Rate FiO2 08/31/17 08:18 37.0 66 17 157/82 (107) 92 08/31/17 04:00 36.9 73 18 163/82 (109) 93 Room Air 08/31/17 01:47 Room Air 08/30/17 23:57 36.8 79 18 188/94 95 Room Air 08/30/17 22:57 75 18 94 08/30/17 21:38 76 18 181/103 96 Room Air 08/30/17 18:22 36.5 78 16 194/92 98 Room Air General Appearance: no apparent distress Eyes: normal inspection, EOMI Neck: supple, no adenopathy, thyroid normal, no JVD Respiratory/Chest: chest non-tender, lungs clear, normal breath sounds, no accessory muscle use Cardiovascular: regular rate, rhythm, no JVD, no murmur Abdomen: normal bowel sounds, non tender, soft, no organomegaly Extremities: normal inspection, no pedal edema, normal capillary refill Neurologic/Psych: alert, normal mood/affect, oriented x 3 Skin: normal color, no jaundice, warm/dry, no rash Laboratory Results Last 24 Hours Test 08/30/17 19:10 08/31/17 00:03 08/31/17 00:07 08/31/17 05:53 White Blood Count 11.17 K/uL 10.44 K/uL Red Blood Count 4.64 M/uL 4.73 M/uL Hemoglobin 13.4 g/dL 13.6 g/dL Hematocrit 39.4 % 39.9 % Mean Corpuscular Volume 84.9 fL 84.4 fL Mean Corpuscular Hemoglobin 28.9 pg 28.8 pg Mean Corpuscular Hemoglobin Concent 34.0 g/dl 34.1 g/dl Platelet Count 355 K/uL 340 K/uL Mean Platelet Volume 9.2 fL 9.2 fL Neutrophils (%) (Auto) 61.9 % 60.6 % Lymphocytes (%) (Auto) 29.0 % 29.6 % Monocytes (%) (Auto) 7.5 % 8.1 % Eosinophils (%) (Auto) 0.8 % 0.9 % Basophils (%) (Auto) 0.4 % 0.4 % Neutrophils # (Auto) 6.91 K/uL 6.33 K/uL Lymphocytes # (Auto) 3.24 K/uL 3.09 K/uL Monocytes # (Auto) 0.84 K/uL 0.85 K/uL Eosinophils # (Auto) 0.09 K/uL 0.09 K/uL Basophils # (Auto) 0.05 K/uL 0.04 K/uL RDW Standard Deviation 39.7 fL 39.5 fL RDW Coefficient of Variation 13.0 % 12.9 % Immature Granulocyte % (Auto) 0.4 % 0.4 % Immature Granulocyte # (Auto) 0.04 K/uL 0.04 K/uL Sodium Level 141 mmol/L 139 mmol/L Potassium Level 3.9 mmol/L 3.9 mmol/L Chloride Level 106 mmol/L 105 mmol/L Carbon Dioxide Level 25 mmol/L 26 mmol/L Anion Gap 10.0 mmol/L 8.0 mmol/L Blood Urea Nitrogen 12 mg/dl 10 mg/dl Creatinine 0.94 mg/dl 0.66 mg/dl Est Creatinine Clear Calc Drug Dose 89.1 ml/min 126.0 ml/min Estimated GFR () 80.8 117.7 Estimated GFR (Non- 69.8 101.6 BUN/Creatinine Ratio 12.5 15.3 Random Glucose 163 mg/dl 140 mg/dl Calcium Level 8.8 mg/dl 8.7 mg/dl Total Bilirubin 0.2 mg/dl Aspartate Amino Transf (AST/SGOT) 46 U/L Alanine Aminotransferase (ALT/SGPT) 22 U/L Alkaline Phosphatase 176 U/L Total Creatine Kinase 263 U/L 181 U/L Total Protein 8.0 gm/dl Albumin 3.6 gm/dl Globulin 4.4 gm/dl Albumin/Globulin Ratio 0.8 Lipase 271 U/L Bedside Glucose 127 mg/dl Urine Color YELLOW Urine Appearance CLEAR Urine pH 5.0 Urine Specific [place] > 1.045 Urine Protein NEG Urine Glucose (UA) NEG Urine Ketones NEG Urine Occult Blood NEG Urine Nitrite NEG Urine Bilirubin NEG Urine Urobilinogen NEG Urine Leukocyte Esterase NEG Prothrombin Time 10.9 SECONDS Prothromb Time International Ratio 1.0 Test 08/31/17 07:55 Bedside Glucose 126 mg/dl CT abd/pelvis on 08/30/17 with IV contrast 1. Findings are consistent with multifocal hepatic metastatic disease. 2. There is multifocal osteoblastic metastatic disease. 3. There is a large irregular soft tissue lesion identified in the right presacral/precoccygeal region along the posterior right aspect of the rectum. This is also concerning for neoplasm. 4. An indeterminant 3.8 cm lesion is noted in the right ovary. Consider pelvic ultrasound in follow-up. 5. No acute infectious or inflammatory findings are identified in the abdomen or pelvis. Impression Patient is a 52 year old female with right pelvic/perirectal mass. Her liver and bone imaging suggests a metastasis. Differentials for the primary site include ovarian cancer, other pelvic cancer, rectal cancer. Plan 1. Dr. Spicer reviewed the films with Dr. Suazo who does not feel that the mass is originating in the rectum and suggests that a liver bx be completed. 2. Will order guided liver biopsy. 3. Will continue to follow. I have seen , examined and agree with the plan as outlined by HOMAR Olmedo as above. -exam reveals soft abd -Very concerning imaging for diffusely metastatic disease without known primary. Does have a anoop-rectal/anoop-sacral mass but not definitively mucosal based. Given liver lesions and cutaneous accessibility, bx of liver lesions would provide with anticipated diagnosis as well as staging. -Discussed and reviewed images with Radiology and will proceed cutaneous approach prior to any anticipated endoscopy.
--- NOTE | 2017-08-31 10:32 | DIAGNOSTIC IMAGING REPORT ---
ULTRASOUND OF THE PELVIS CLINICAL HISTORY: Ovarian lesion seen by CT. COMPARISON STUDY: Pelvic CT dated 08/30/2017. TECHNIQUE: Real-time, grayscale, and color flow sonography of the pelvis is performed both transabdominally and endovaginally. Images are reviewed in the transverse and longitudinal planes. FINDINGS: Uterus: The uterus is normal in size and echotexture, measuring 5.7 x 3.8 x 3.4 cm. A nabothian cyst is incidentally noted in the cervix. Endometrium: The endometrium is normal in appearance, and the endometrial stripe is normal in thickness measuring up to 0.5 cm. Ovaries: The ovaries are normal in size and morphology. The right ovary measures 3.4 x 2.4 x 3.4 cm and the left ovary measures 1.7 x 0.8 x 1.5 cm. There is a simple appearing cystic lesion identified in the right ovary which measures up to 2.9 cm. Small coarse shadowing calcifications are also seen within the right ovary. Normal Doppler waveforms are shown within both ovaries. Pelvis: There is no free fluid in the cul-de-sac. No concerning adnexal lesion is seen. IMPRESSION: 1. No acute sonographic abnormality is identified in the pelvis. 2. There is a 2.9 cm simple appearing cystic lesion in the right ovary with adjacent calcifications. This is of low suspicion. A precautionary 6 month follow-up examination is recommended to document stability/resolution. Electronically signed by: Jose Mahajan M.D. 08/31/2017 10:31 AM Dictated Date/Time: 08/31/2017 10:28 AM
[2017-08-31] MEDS: TRAMADOL HCL 50 MG TAB PO PRN (10:45)
[2017-08-31] MEDS ORDERED: WARFARIN SOD 1 MG TAB PO ONE (11:30)
--- NOTE | 2017-08-31 11:50 | Medical Consult ---
Consultation Date of Consultation: Aug 31, 2017. Attending Physician: Jalil Pulido M.D. Reason for Consultation: Bone metastasis with unknown primary History of Present Illness Ms. Bernabe is a 52 yo F new to the consulting Medical Oncology service. She has a PMH of HTN and hyperlipidemia. She presented to [facility] on 08/31/17 for intractable right LE pain. She has had this pain intermittently for past few months, mainly in the back. She had further work up in ER that revealed innumerable bone metastases in lumbar spine on lumbar MRI. She had CT of the chest which did not reveal lung primary, but liver metastases. She had CT abd/pelvis that revealed a rectal lesion and possibly right ovarian mass, 15 liver metastatic lesions. GI has been consulted for rectal, liver findings. Additional history obtained from the patient at bedside. She reports a good energy level. She is able to walk with a walker. She states her RLE pain is under control now, about 3-4/10. She denies bowel or bladder incontinence. She has not had hematochezia or melena. No hematuria. She denies abdominal pain, nausea, anorexia. She has not had cough or dyspnea. She denies headache or dizziness. She denies other focal bone pain. She has no FH of cancer. Past Medical/Surgical History Medical Problems: (1) Leg pain, right Status: Acute (2) Leg pain, right Status: Acute Social History Smoking Status: Never Smoker Marital Status: Allergies Coded Allergies: No Known Allergies (Unverified , 08/30/17) Current Inpatient Medications Current Inpatient Medications Medications (Trade) Dose Ordered Sig/Yolanda Route Start Time Stop Time Status Last Admin Dose Admin Lidocaine (Lidoderm Patch 5%) 1 patch QAM TD 08/31/17 08:00 09/30/17 08:59 Miscellaneous (Remove Lidoderm Patch) 1 ea DAILY@21 N/A 08/31/17 21:00 09/30/17 20:59 Lisinopril (Zestril Tab) 2.5 mg HS PO 08/31/17 21:00 09/30/17 20:59 Miscellaneous (Iv Fluids Completed) 1 ea PRN PRN N/A 08/30/17 23:00 08/30/18 22:59 Ioversol (Optiray 320) 100 ml UD PRN IV 08/30/17 23:00 09/03/17 22:59 Lactated Ringer's 1,000 ml @ 60 mls/hr [id number] ONCE IV 08/30/17 23:00 08/31/17 15:39 08/30/17 23:53 60 MLS/HR Prochlorperazine Edisylate 5 mg/ Syringe 5 ml @ 5 mls/min Q6H PRN IV 08/30/17 23:00 09/29/17 22:59 Tramadol HCl (Ultram Tab) not relieved by tylenol @ Q6H PRN PO 08/30/17 23:00 09/29/17 22:59 Morphine Sulfate (MoRPHine SULFATE INJ) 4 mg Q3H PRN IV 08/30/17 23:00 09/13/17 22:59 08/31/17 06:30 4 MG Lorazepam (Ativan Inj) 0.5 mg Q4H PRN IV 08/30/17 23:00 09/29/17 22:59 Doxycycline Hyclate (Vibramycin Cap) 100 mg BID PO 08/31/17 08:00 09/10/17 08:59 08/31/17 08:33 100 MG Enoxaparin Sodium (Lovenox Inj) 40 mg Q24H SQ 08/31/17 08:00 09/30/17 07:59 08/31/17 08:33 40 MG Acetaminophen (Tylenol Tab) 650 mg Q4H PRN PO 08/30/17 23:00 09/29/17 22:59 Insulin Aspart (novoLOG ASPART) SLIDING SCALE If C... ACHS SC 08/31/17 06:30 09/30/17 06:59 Glucose (Glucose 40% Gel) 15-30 GRAMS 15 GRAMS... UD PRN PO 08/30/17 23:00 09/29/17 22:59 Glucose (Glucose Chew Tab) 4-8 Tablets 4 Tabl... UD PRN PO 08/30/17 23:00 09/29/17 22:59 Dextrose (Dextrose 50% 50ML Syringe) 25-50ML OF 50% DW IV FOR... UD PRN IV 08/30/17 23:00 09/29/17 22:59 Glucagon (Glucagon Inj) 1 mg UD PRN SQ 08/30/17 23:00 09/29/17 22:59 Review of Systems Constitutional: No fever, No weight loss Respiratory: No cough, No shortness of breath Cardiovascular: No chest pain Abdomen: No pain, No nausea, No diarrhea, No constipation, No GI bleeding Musculoskeletal: + problem reported (see HPI) Genitourinary - Female: No hematuria Neurologic: No vertigo Physical Exam Date Time Temp Pulse Resp B/P (MAP) Pulse Ox O2 Delivery O2 Flow Rate FiO2 08/31/17 08:18 37.0 66 17 157/82 (107) 92 08/31/17 04:00 36.9 73 18 163/82 (109) 93 Room Air 08/31/17 01:47 Room Air 08/30/17 23:57 36.8 79 18 188/94 95 Room Air 08/30/17 22:57 75 18 94 08/30/17 21:38 76 18 181/103 96 Room Air 08/30/17 18:22 36.5 78 16 194/92 98 Room Air General Appearance: no apparent distress ENT: hearing grossly normal Neck: supple, no adenopathy Respiratory/Chest: lungs clear, normal breath sounds Cardiovascular: regular rate, rhythm, no edema Abdomen/GI: normal bowel sounds, non tender, soft Extremities/Musculoskelatal: no calf tenderness Neurologic/Psych: alert, oriented x 3 Laboratory Results Last 24 Hours Test 08/30/17 19:10 08/31/17 00:03 08/31/17 00:07 08/31/17 05:53 White Blood Count 11.17 K/uL 10.44 K/uL Red Blood Count 4.64 M/uL 4.73 M/uL Hemoglobin 13.4 g/dL 13.6 g/dL Hematocrit 39.4 % 39.9 % Mean Corpuscular Volume 84.9 fL 84.4 fL Mean Corpuscular Hemoglobin 28.9 pg 28.8 pg Mean Corpuscular Hemoglobin Concent 34.0 g/dl 34.1 g/dl Platelet Count 355 K/uL 340 K/uL Mean Platelet Volume 9.2 fL 9.2 fL Neutrophils (%) (Auto) 61.9 % 60.6 % Lymphocytes (%) (Auto) 29.0 % 29.6 % Monocytes (%) (Auto) 7.5 % 8.1 % Eosinophils (%) (Auto) 0.8 % 0.9 % Basophils (%) (Auto) 0.4 % 0.4 % Neutrophils # (Auto) 6.91 K/uL 6.33 K/uL Lymphocytes # (Auto) 3.24 K/uL 3.09 K/uL Monocytes # (Auto) 0.84 K/uL 0.85 K/uL Eosinophils # (Auto) 0.09 K/uL 0.09 K/uL Basophils # (Auto) 0.05 K/uL 0.04 K/uL RDW Standard Deviation 39.7 fL 39.5 fL RDW Coefficient of Variation 13.0 % 12.9 % Immature Granulocyte % (Auto) 0.4 % 0.4 % Immature Granulocyte # (Auto) 0.04 K/uL 0.04 K/uL Sodium Level 141 mmol/L 139 mmol/L Potassium Level 3.9 mmol/L 3.9 mmol/L Chloride Level 106 mmol/L 105 mmol/L Carbon Dioxide Level 25 mmol/L 26 mmol/L Anion Gap 10.0 mmol/L 8.0 mmol/L Blood Urea Nitrogen 12 mg/dl 10 mg/dl Creatinine 0.94 mg/dl 0.66 mg/dl Est Creatinine Clear Calc Drug Dose 89.1 ml/min 126.0 ml/min Estimated GFR () 80.8 117.7 Estimated GFR (Non- 69.8 101.6 BUN/Creatinine Ratio 12.5 15.3 Random Glucose 163 mg/dl 140 mg/dl Calcium Level 8.8 mg/dl 8.7 mg/dl Total Bilirubin 0.2 mg/dl Aspartate Amino Transf (AST/SGOT) 46 U/L Alanine Aminotransferase (ALT/SGPT) 22 U/L Alkaline Phosphatase 176 U/L Total Creatine Kinase 263 U/L 181 U/L Total Protein 8.0 gm/dl Albumin 3.6 gm/dl Globulin 4.4 gm/dl Albumin/Globulin Ratio 0.8 Lipase 271 U/L Bedside Glucose 127 mg/dl Urine Color YELLOW Urine Appearance CLEAR Urine pH 5.0 Urine Specific [place] > 1.045 Urine Protein NEG Urine Glucose (UA) NEG Urine Ketones NEG Urine Occult Blood NEG Urine Nitrite NEG Urine Bilirubin NEG Urine Urobilinogen NEG Urine Leukocyte Esterase NEG Prothrombin Time 10.9 SECONDS Prothromb Time International Ratio 1.0 Test 08/31/17 07:55 Bedside Glucose 126 mg/dl MRI lumbar spine from 08/30/17: Alignment of lumbar spine is anatomic. There is slight loss of height of the superior plate of L2. There are innumerable T1 and T2 hypointense lesions within the visualized skeletal structures which have a peripheral T1 and T2 hyperintense rim. There is associated marrow edema and enhancement. These include a 2.2 cm T12 vertebral body lesion and a 2.3 cm L3 vertebral body lesion. There is a left iliac bone lesion which is partially imaged on this exam which measures at least 2.7 cm. No epidural extension of tumor is noted. There may be slight extension of soft tissue into the left L5- Q5hjofin foramen. A 3.2 cm right ovarian lesion is incidentally noted. The conus terminates at the mid L1 level. L1-2: There is minimal disc bulge. The central canal and neural foramen are patent. L2-3: There is mild disc bulge. There is mild narrowing of the central canal, lateral recesses and neural foramen. L3-4: There is minimal disc bulge and ligamentous hypertrophy. There is minimal narrowing of the central canal and lateral recesses. The neural foramen are patent. L4-5: There is disc bulge with ligamentous hypertrophy and facet arthrosis. There is moderate narrowing of the central canal, lateral recesses and mild narrowing of both neural foramen. L5-S1: There is disc bulge with ligamentous hypertrophy and facet arthrosis. There is moderate narrowing of the central canal, lateral recesses and mild narrowing of both neural foramen. CT of RLE from 08/30/17: Soft tissues of the right thigh within normal limits. Vasculature patent. No lymphadenopathy. Few vague sclerotic lesions suggested in the pelvis, which are marked on the images. Degenerative changes of the right hip joint with joint space loss most severe posteriorly, where there is the greatest degree of cystic change in the acetabulum. Vague sclerotic lesion noted at the basicervical region of the right femoral neck as well as within the medullary cavity of the diaphysis. At one of these sites in the mid to distal diaphysis, there is associated minimal irregularity and erosion of the inner aspect of the cortex (series 10 image 301) . No evidence of a fracture. No periosteal reaction or full-thickness erosion of the cortex. Additional sclerotic lesion noted in the medial metadiaphysis. No acute fracture or subluxation. No knee joint effusion. CT chest from 08/30/17: Thyroid: There is a 7 mm right lobe thyroid nodule. Pulmonary vasculature: The pulmonary trunk is normal in caliber. There are no central filling defects identified to suggest pulmonary embolus. Note that this examination was not protocoled for the evaluation of pulmonary emboli. HEART: The heart is normal in size and configuration, without pericardial effusion. Lungs and pleural spaces: There are dependent atelectatic changes. There is a 19 mm left lower lobe lung cyst. There is no focal pulmonary consolidation. Mediastinum: Mediastinal lymph nodes are the upper limits of normal in size. [place]: Hilar lymph nodes are the upper limits of normal in size. Axilla: There is no evidence of pathologic axillary lymphadenopathy Upper abdomen: There are multiple hepatic masses. These include 2 left lobe masses measuring 6 cm and 4.6 cm respectively. There is also a 5.3 cm right lobe hepatic mass. Skeletal structures: There are multiple sclerotic lesions suspicious for metastatic disease. CT abdomen/pelvis from 08/30/17: Lung bases: The heart is normal in size and without pericardial effusion. The lung bases are clear noting dependent atelectasis. There is a small hiatal hernia. Liver: The contrast-enhanced liver is normal in size, contour, and attenuation. There is no intrahepatic biliary ductal dilatation. The hepatic veins and portal veins are patent. There are numerous (greater than 15) large low- attenuation hepatic lesions consistent with multifocal hepatic metastatic disease. The largest lesion in the right lobe is seen on image #62 and measures 5.7 x 3.7 cm. The largest lesion in the left lobe seen on image #111 and measures 5.5 x 4.8 cm. Spleen: Normal in size and attenuation. Pancreas: Unremarkable. Adrenal glands: Unremarkable. Kidneys: The contrast enhanced kidneys are normal in size and without hydronephrosis. The kidneys enhance symmetrically. Bowel: No bowel obstruction is identified. There is an irregular mass lesion along the posterior margin of the rectum in the right presacral/precoccygeal region seen on image #441. This measures 7.0 x 2.3 cm. Peritoneum: There is no intraperitoneal free air or abdominal ascites. Lymphadenopathy: None. Pelvic viscera: The bladder is filled with excreted contrast and is normal as imaged. The uterus is normal as visualized. A 3.8 cm indeterminant lesion is noted in the right ovary on image #387. Skeletal structures: Findings are consistent with diffuse/multifocal osteoblastic metastatic disease. Lesions are seen throughout the spine, the bony pelvis, and the proximal femora. A lesion within associated soft tissue component is seen involving the left anterior fourth rib. There is no evidence of pathologic fracture. Pelvis US from 08/31/17: Uterus: The uterus is normal in size and echotexture, measuring 5.7 x 3.8 x 3.4 cm. A nabothian cyst is incidentally noted in the cervix. Endometrium: The endometrium is normal in appearance, and the endometrial stripe is normal in thickness measuring up to 0.5 cm. Ovaries: The ovaries are normal in size and morphology. The right ovary measures 3.4 x 2.4 x 3.4 cm and the left ovary measures 1.7 x 0.8 x 1.5 cm. There is a simple appearing cystic lesion identified in the right ovary which measures up to 2.9 cm. Small coarse shadowing calcifications are also seen within the right ovary. Normal Doppler waveforms are shown within both ovaries. Pelvis: There is no free fluid in the cul-de-sac. No concerning adnexal lesion is seen. Assessment & Plan 1. 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 Rectal mass 3. Right ovarian mass- US reveals cyst 4. 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 * Patient verbalized understanding that she has diffuse bone and liver metastases from an unknown primary, making her Stage IV disease * She understands that a primary needs to be confirmed, GI consulted and final recommendations pending- rectal lesion vs hepatic metastases biopsy * She understands she has incurable disease, but that palliative systemic treatment can be considered given her overall fair performance status prior to admission * From Medical Oncology, will order CEA and CA 125 levels * She understands that we can talk about particular of palliative treatment until primary is confirmed * Patient's pain is currently on under control with PRN morphine and Tramadol * Advise that patient should be started on long acting pain medication like a Fentanyl patch and then have oxycodone for PRN breakthrough pain * Spoke with Dr. Hutchins- he recommends ordering Radiation Oncology consult by primary team to see if lumbar metastases could be considered for palliative XRT for pain control * Will continue to monitor patient's work up and be involved with goals of care Dr. Hutchins is attending medical oncologist- please see his addendum. Thanks for the consult. I performed history and physical examination of the patient. I have discussed the patient's case, impression and plan with Barbara Cadena PA-C. Her note reflects my findings and plan. In summary, she is a 52-year-old female, admitted for lower back pain and right mid-thigh pain, found to have multiple bony lesions suspicious for metastatic disease, multiple liver lesions also suspicious for metastatic disease, pre sacral soft tissue mass noted, no lower GI symptoms, no blood in the stools he no evidence of iron deficiency, at present she has widespread metastatic disease , unknown primary, agree about the getting biopsy of the one of the liver lesion. Normal CEA level noted. No definite ovarian lesion identified in the pelvic ultrasound. Will decide about further management after having definitive diagnosis in her case. Will consider for bone modifying agent as an outpatient. Dr. Matias Hutchins Hem/Onc
--- NOTE | 2017-08-31 14:47 | Progress Note ---
Progress Note Date of Service Aug 31, 2017. Progress Note Subjective: right hip/leg pain but not in acute distress Physical Exam General: awake, alert, speaks in full sentences Eyes: EOMI Lungs: CTABL, no wheezinge Heart Rate is regular, normal rhythm Abdomen: soft, nontender, nondistended Extremities: no acute point tenderness on palpation, no edema Assessment/Plan Since recent hospital admission, patient has had multiple imaging studies done and specialist physician involvement for what appears to be metastatic cancer. Gastroenterology has recommended needle biopsy of the liver for the liver lesions to help make diagnosis. Patient is to be NPO after midnight for planned procedure tomorrow on 09/01/17. In addition patient is being evaluated by radiation oncology for possible radiation to the multiple sclerotic lesions in the pelvis and right femur concerning for osseous metastatic disease as the patient's initial symptoms has been right hip/leg pain. There are also lumbar lesions, Rectal mass vs para-rectal mass. Medical Oncology to order CEA and CA 125 levels. Patient also awaiting evaluations palliative care services Daughter [phone] with whom patient given hospitalist physician permission to speak with her about current health situation Full Code Status
--- NOTE | 2017-08-31 15:50 | Radiation Oncology Consult ---
Radiation Oncology Consult Date / Reason Aug 31, 2017. [facility]icians Medical Oncologist: Dr. Matias Hutchins Radiation Oncologist: Dr. Millie Hutchins Other Providers: Barbara Cadena - Heme/Onc Dr. Pluido - Hospitalist Dr. Spicer - GI Diagnosis (1) Bone metastases Location: Right Femur, Spine Histology Subtype: Unknown Stage: Unknown at this time History of Present Illness I am seeing Ms. Bernabe in consultation at the request of Dr. Pulido. I also spoke to the patient's daughter, Sangeeta Fields, on the phone. ECOG PS: 2 - 3 Ms. Bernabe is a 52-year-old female with no previous history of cancer who presented to the emergency room with complaints of low back pain. 08/24/2017 --- x-ray of right femur --- IMPRESSION: Negative study. 08/30/2017 --- MRI of lumbar spine with and without contrast ---IMPRESSION: 1. Innumerable enhancing skeletal lesions which are highly suggestive of metastatic disease. Myeloma or lymphoma could appear similar although are considered less likely. Correlation with known primary malignancy is recommended. No epidural extension of tumor. Slight loss of height of the superior endplate of L2. Possible slight extension into the left L5-S1 neural foramen. 2. Mild to moderate multilevel degenerative changes, as described above. 08/30/2017 --- CT of right lower extremity --- IMPRESSION: 1. Multiple vague sclerotic lesions in the pelvis and right femur concerning for osseous metastatic disease. 2. Degenerative changes of the right hip 08/30/2017 --- CT of chest --- IMPRESSION: 1. Multiple sclerotic skeletal lesions , suspicious for metastasis 2. Multiple liver masses highly suspicious for metastasis 3. No findings to indicate a lung primary 08/30/2017 --- CT of abdomen/pelvis --- IMPRESSION: 1. Findings are consistent with multifocal hepatic metastatic disease. 2. There is multifocal osteoblastic metastatic disease. 3. There is a large irregular soft tissue lesion identified in the right presacral/precoccygeal region along the posterior right aspect of the rectum.This is also concerning for neoplasm. 4. An indeterminant 3.8 cm lesion is noted in the right ovary. Consider pelvic ultrasound in follow-up. 5. No acute infectious or inflammatory findings are identified in the abdomen or pelvis. 08/31/2017 --- ultrasound of pelvis ---IMPRESSION: 1. No acute sonographic abnormality is identified in the pelvis. 2. There is a 2.9 cm simple appearing cystic lesion in the right ovary with adjacent calcifications. This is of low suspicion. A precautionary 6 month follow-up examination is recommended to document stability/resolution. 08/31/2017 --- GI consultation --- Dr. Spicer has recommended a CT-guided biopsy of the liver and had low suspicion that the perirectal/presacral mass is related to the gastrointestinal system. 08/31/2017 --- medical oncology consultation with EDDIE Becerra and Dr. Hutchins --- recommended biopsy to confirm tissue diagnosis and recommended consideration of palliative external beam radiation therapy. Additionally, they have recommended workup including CEA and CA 125 levels. We are now seeing the patient in consultation discuss the role of radiation therapy. As per primary team, the patient is scheduled to undergo a CT-guided biopsy of the liver tomorrow morning. Currently, the patient complains of pain along the right lateral aspect of her leg. She denies any pain in her lower back or hip. Pacemaker Hx Pacemaker: No Social History Smoking Status: Never Smoker Hx Tobacco Use In Past Year?: No Hx Alcohol Use: No Allergies Coded Allergies: No Known Allergies (Unverified , 08/30/17) Home Medications Scheduled Atorvastatin (Lipitor), 10 MG PO DAILY Doxycycline Monohydrate (Monodox), 100 MG PO BID Review of Systems Ear/Hearing: Ear Side: Bilateral Hearing Ability: Normal Hearing Aid: None Edema: Present?: No Location Body Site Modifier: Bilateral Physical Exam Height: 5 (Feet) 9.00 (Inches) 175.3 (Centimeters) 1.7526 (Meters) Weight: 222 (Pounds) 3.6 (Ounces) 100.800 (Kilograms) 619300.000 (Grams) Date Time Temp Pulse Resp B/P (MAP) Pulse Ox O2 Delivery O2 Flow Rate FiO2 08/31/17 11:33 36.9 71 18 173/88 (116) 95 08/31/17 08:30 Room Air 08/31/17 08:18 37.0 66 17 157/82 (107) 92 08/31/17 04:00 36.9 73 18 163/82 (109) 93 Room Air 08/31/17 01:47 Room Air 08/30/17 23:57 36.8 79 18 188/94 95 Room Air 08/30/17 22:57 75 18 94 08/30/17 21:38 76 18 181/103 96 Room Air 08/30/17 18:22 36.5 78 16 194/92 98 Room Air General Appearance: + mild distress Head: normocephalic, atraumatic Eyes: normal inspection ENT: normal ENT inspection Neck: supple, no adenopathy Respiratory/Chest: chest non-tender, lungs clear, normal breath sounds, no respiratory distress Cardiovascular: regular rate, rhythm, no edema, no gallop, no JVD, no murmur Abdomen/GI: normal bowel sounds, non tender, soft, no organomegaly Back: normal inspection Extremities: normal inspection 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 Laboratory Laboratory Results: were reviewed Pathology Pathology Results: pending Imaging Imaging Studies: were reviewed, and pertinent findings noted in HPI Assessment & Recommendations Assessment: Ms. 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 Currently, there is no tissue diagnosis and the patient has no history of previous cancer. The patient is scheduled to undergo a CT-guided biopsy of the liver tomorrow. Currently, the patient has pain involving her right femur where there is known to be multiple sclerotic lesions concerning for metastatic disease. We have been asked to evaluate her for consideration of palliative external beam radiation therapy. Recommendation: We recommend pursuing a biopsy of the liver to establish a tissue diagnosis. After confirming a preliminary diagnosis of carcinoma, we would recommend initiating palliative external beam radiation therapy to the right femur where she is currently having pain and also has sclerotic lesions consistent with metastatic disease. Tomorrow, we will bring the patient down for CT simulation for treatment planning following her biopsy in the morning. I have also spoken with the patient's daughter and explained to her our recommendations and she is in agreement with this plan. We also appreciate input from medical oncology. Rationale/Explanation: We have explained the indications, alternatives, benefits , risks and side effects of radiation therapy. We have explained the most common side effects including but are not limited to skin erythema, skin break down, hair loss, fibrosis, adhesion development, radiation pneumonitis, rib and bone fracture, lymphedema, heart failure and heart disease, esophagitis, bowel obstruction, urinary symptoms, thyroid disorders, mucositis, nauesea, vomiting, diarrhea, anemia, fatigue and development of secondary malignancy. Women may also have early onset ovarian failure leading to premature menopause and may experience infertility issues depending on her age. We have explained the CT simulation process and treatment planning. We explained what to expect before, during and after treatment on a regular basis. The patient understands and would be willing to consent to treatment. The patient and family had multiple questions which were answered to their full satisfaction. Thank you for allowing us to participate in the care of this patient. This chart was completed in part utilizing [employer] Speech Voice Recognition software. Attempts were made to minimize the grammatical errors, random word insertions, pronoun errors and incomplete sentences. Any formal questions or concerns about the content, text or information contained within the body of this dictation should be directly addressed to the provider for clarification. Millie Hutchins MD Department of Radiation Oncology [facility] Total Time In Consultation I spent 30 minutes examining and counseling the patient. I spent 15 minutes completing this note. JOANA
[2017-08-31] MEDS ORDERED: LISINOPRIL 2.5 MG TAB PO SCH (21:00)
[2017-09-01] VITALS (7 sets, daily range): BP systolic 133–150; BP diastolic 82–90; PULSE 60–69; TEMP 36.2–36.9; O2SAT 91–95; Ht 175.3 cm; Wt 99.2 kg
[2017-09-01] MEDS: INSULIN ASPART 100 UNITS/ML 3 ML PEN SC SCH ×2 (06:30→11:00)
[2017-09-01] MEDS: DOXYCYCLINE HYCLATE 100 MG CAP PO SCH (07:50)
[2017-09-01] MEDS: TRAMADOL HCL 50 MG TAB PO PRN (07:50)
[2017-09-01] MEDS: LIDODERM (LIDOCAINE) PATCH 5% TD SCH (07:51)
--- NOTE | 2017-09-01 10:04 | DIAGNOSTIC IMAGING REPORT ---
ULTRASOUND GUIDED FINE NEEDLE ASPIRATION OF 3.5 CM LEFT HEPATIC LOBE MASS CLINICAL HISTORY: Liver and bone lesions. Request for liver biopsy. COMPARISON STUDY: CT of the abdomen and pelvis August 30, 2017. PROCEDURE: Sonography of the liver demonstrated numerous liver lesions including a 3.5 cm index left hepatic lobe lesion which was targeted for fine needle aspiration. Procedure, risks and benefits were discussed with the patient including the risk of bleeding, infection and injury to adjacent structures. The patient agreed to the procedure and informed written consent was obtained. The procedure was performed by Dr. Ruggiero following a timeout. Skin of the abdomen was prepped and draped in sterile fashion and local anesthesia was achieved with 1% lidocaine. Under direct ultrasound guidance, 2 22-gauge aspirations were performed utilizing Jess needles. Samples were deemed preliminarily adequate by pathology. The patient tolerated the procedure well and no immediate complications were evident. IMPRESSION: Successful ultrasound guided 22-gauge aspiration of 3.5 cm left hepatic lobe mass. Electronically signed by: Manav Ruggiero M.D. 09/01/2017 10:02 AM Dictated Date/Time: 09/01/2017 9:59 AM
--- NOTE | 2017-09-01 12:32 | Palliative Care Consultation ---
Consultation Date of Consultation: Sep 01, 2017. Requesting Physician: Dr. Pulido Reason for Consultation: Goals of care History of Present Illness Pt is a 52 year old female that presented to the ED with leg pain. 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 Pt has no history of previous cancers. Pt has been seen at [facility] by her PCP in May where a mammogram was performed and normal. She has been evaluated by GI and heme/onc. Pt had a liver biospy today for which she will follow up outpatient next week to discuss treatment options. I introduced palliative care and anticipate we can be of help from an outpatient standpoint. Pt stated she has 5 children 2 boys in [place], a daughter in [place] and another daughter in [place] who has been primary contact regarding medical information. Pt states she is nervous about her current diagnosis, but has found she is not having any difficulty with sleeping. Questions were answered to (in room) and patient. Total time spent 50 minutes with > 75% discussing current plan and supportive care. Thank you kindly for this consult, we will follow peripherally and become involved outpatient following liver biopsy results as needed. Past Medical/Surgical History Medical History: leg pain Social History Smoking Status: Never Smoker History of Alcohol Use: No Drug Use: none Marital Status: Occupation Status: employed ([email or web address]) Review of Systems Constitutional: No see HPI, No fever, No chills, No sweats, No weight loss, No weakness, No fatigue, No problem reported Eyes: No see HPI, No worsening of vision, No eye pain, No redness, No discharge , No diplopia, No problem reported ENT: No see HPI, No hearing loss, No unusual epistaxis, No nasal symptoms, No sore throat, No tinnitus, No dental problems, No trouble swallowing, No problem reported Respiratory: No see HPI, No cough, No sputum, No wheezing, No shortness of breath, No dyspnea on exertion, No dyspnea at rest, No hemoptysis, No problem reported Cardiac: No see HPI, No chest pain, No orthopnea, No PND, No edema, No claudication, No palpitations, No problem reported Breast: No see HPI, No breast lump, No change in shape, No nipple discharge, No breast pain, No problem reported Abdomen: No see HPI, No pain, No nausea, No vomiting, No diarrhea, No constipation, No GI bleeding, No problem reported Musculoskeletal: + problem reported (right thigh and groin discomfort) Female : No see HPI, No dysuria, No urinary frequency, No hematuria, No incontinence, No abnormal vaginal bleeding, No vaginal discharge, No problem reported Neurologic: + problem reported (nervous feeling, but not causing difficulty with sleep) Psychiatric: No see HPI, No depression symptoms, No anhedonism, No anxiety, No insomnia, No substance abuse, No problem reported Heme: No see HPI, No abnormal bleeding/bruising, No clotting problems, No swollen lymph nodes, No night sweats, No problem reported Endo: No see HPI, No fatigue, No excessive thirst, No excessive urination, No problem reported Skin: No see HPI, No rash, No itch, No new/changing skin lesions, No color change, No bleeding, No problem reported Allergies Coded Allergies: No Known Allergies (Unverified , 08/30/17) Medications Current Inpatient Medications Medications (Trade) Dose Ordered Sig/Yolanda Route Start Time Stop Time Status Last Admin Dose Admin Lidocaine (Lidoderm Patch 5%) 1 patch QAM TD 08/31/17 08:00 09/30/17 08:59 09/01/17 07:51 1 PATCH Miscellaneous (Remove Lidoderm Patch) 1 ea DAILY@21 N/A 08/31/17 21:00 09/30/17 20:59 Lisinopril (Zestril Tab) 2.5 mg HS PO 08/31/17 21:00 09/30/17 20:59 08/31/17 21:26 2.5 MG Miscellaneous (Iv Fluids Completed) 1 ea PRN PRN N/A 08/30/17 23:00 08/30/18 22:59 08/31/17 12:30 1 EA Ioversol (Optiray 320) 100 ml UD PRN IV 08/30/17 23:00 09/03/17 22:59 Prochlorperazine Edisylate 5 mg/ Syringe 5 ml @ 5 mls/min Q6H PRN IV 08/30/17 23:00 09/29/17 22:59 Tramadol HCl (Ultram Tab) not relieved by tylenol @ Q6H PRN PO 08/30/17 23:00 09/29/17 22:59 09/01/17 07:50 50 MG Morphine Sulfate (MoRPHine SULFATE INJ) 4 mg Q3H PRN IV 08/30/17 23:00 09/13/17 22:59 08/31/17 06:30 4 MG Lorazepam (Ativan Inj) 0.5 mg Q4H PRN IV 08/30/17 23:00 09/29/17 22:59 Doxycycline Hyclate (Vibramycin Cap) 100 mg BID PO 08/31/17 08:00 09/10/17 08:59 09/01/17 07:50 100 MG Acetaminophen (Tylenol Tab) 650 mg Q4H PRN PO 08/30/17 23:00 09/29/17 22:59 Insulin Aspart (novoLOG ASPART) SLIDING SCALE If C... ACHS SC 08/31/17 06:30 09/30/17 06:59 Glucose (Glucose 40% Gel) 15-30 GRAMS 15 GRAMS... UD PRN PO 08/30/17 23:00 09/29/17 22:59 Glucose (Glucose Chew Tab) 4-8 Tablets 4 Tabl... UD PRN PO 08/30/17 23:00 09/29/17 22:59 Dextrose (Dextrose 50% 50ML Syringe) 25-50ML OF 50% DW IV FOR... UD PRN IV 08/30/17 23:00 09/29/17 22:59 Glucagon (Glucagon Inj) 1 mg UD PRN SQ 08/30/17 23:00 09/29/17 22:59 Physical Exam Date Time Temp Pulse Resp B/P (MAP) Pulse Ox O2 Delivery O2 Flow Rate FiO2 09/01/17 11:23 36.4 68 20 150/87 (108) 94 09/01/17 10:53 36.4 60 20 133/88 (103) 91 Room Air 09/01/17 10:24 36.3 65 20 134/82 (99) 92 Room Air 09/01/17 09:49 36.2 69 18 150/84 (106) 92 Room Air 09/01/17 08:00 Room Air 09/01/17 07:11 36.7 69 18 142/84 (103) 94 Room Air 09/01/17 03:10 36.9 63 18 144/90 (108) 95 Room Air 09/01/17 00:00 Room Air 08/31/17 23:14 37.1 68 16 162/94 (116) 93 Room Air 08/31/17 21:25 71 161/88 (112) 08/31/17 20:00 Room Air 08/31/17 19:33 37.1 76 20 176/90 (118) 91 Room Air 08/31/17 15:32 36.8 71 18 168/96 (120) 93 Room Air 08/31/17 15:20 Room Air General Appearance: no apparent distress Neck: thyroid normal, no JVD Respiratory: lungs clear Cardiovascular: regular rate, rhythm, no edema, no JVD, no murmur Abdomen: normal bowel sounds, non tender, soft Musculoskeletal: normal Neurologic/Psychiatric: alert, normal mood/affect, oriented x 3 Skin: no rash Lymphatic: no adenopathy Laboratory Results Last 24 Hours Test 08/31/17 16:38 08/31/17 20:05 09/01/17 07:36 09/01/17 07:41 Bedside Glucose 104 mg/dl 153 mg/dl 121 mg/dl 127 mg/dl Test 09/01/17 11:27 Bedside Glucose 138 mg/dl Assessment & Plan Palliative Performance Scale: 70 % Malignancy with metastasis leg pain Palliative Care recommendations: -Patient to be discharged home and reviewed next week by her family doctor, heme /onc and radiation oncology. -Palliative care offered support to patient and family - will follow peripherally outpatient pending biopsy results. -goals of care can be discussed when treatment options discussed at outpatient follow up Thank you kindly for this consultation - we are happy to follow as needed.
[2017-09-01] MEDS ORDERED: ULT50X PO (13:19)
--- NOTE | 2017-09-01 13:21 | Progress Note ---
Internal Med Progress Note Date of Service: Sep 01, 2017. Provider Documentation: SUBJECTIVE: Patient denies acute pain of right leg. Reports that she is able to ambulate. Denies shortness of breath OBJECTIVE: General: awake, alert, speaks in full sentences Eyes: EOMI Neck: no JVD Lungs: CTABL, no wheezinge Heart Rate is regular, normal rhythm Abdomen: soft, nontender, nondistended Extremities: no acute point tenderness on palpation, no edema ASSESSMENT & PLAN: Hospital Imaging results Lumbar Spine MRI radiology impressions "1. Innumerable enhancing skeletal lesions which are highly suggestive of metastatic disease. Myeloma or lymphoma could appear similar although are considered less likely. Correlation with known primary malignancy is recommended. No epidural extension of tumor. Slight loss of height of the superior endplate of L2. Possible slight extension into the left L5-S1 neural foramen. 2. Mild to moderate multilevel degenerative changes, as described above." Lower Extremity CT "Soft tissues of the right thigh within normal limits. Vasculature patent. No lymphadenopathy. Few vague sclerotic lesions suggested in the pelvis, which are marked on the images. Degenerative changes of the right hip joint with joint space loss most severe posteriorly, where there is the greatest degree of cystic change in the acetabulum. Vague sclerotic lesion noted at the basicervical region of the right femoral neck as well as within the medullary cavity of the diaphysis. At one of these sites in the mid to distal diaphysis, there is associated minimal irregularity and erosion of the inner aspect of the cortex (series 10 image 301) . No evidence of a fracture. No periosteal reaction or full-thickness erosion of the cortex. Additional sclerotic lesion noted in the medial metadiaphysis. No acute fracture or subluxation. No knee joint effusion. IMPRESSION: 1. Multiple vague sclerotic lesions in the pelvis and right femur concerning for osseous metastatic disease. 2. Degenerative changes of the right hip." CT Chest "Thyroid: There is a 7 mm right lobe thyroid nodule. Thoracic aorta: The thoracic aorta is normal in course and caliber, noting standard 3-vessel arch anatomy. No aneurysm or dissection is seen. Pulmonary vasculature: The pulmonary trunk is normal in caliber. There are no central filling defects identified to suggest pulmonary embolus. Note that this examination was not protocoled for the evaluation of pulmonary emboli. HEART: The heart is normal in size and configuration, without pericardial effusion. Lungs and pleural spaces: There are dependent atelectatic changes. There is a 19 mm left lower lobe lung cyst. There is no focal pulmonary consolidation. Mediastinum: Mediastinal lymph nodes are the upper limits of normal in size. Citlalli: Hilar lymph nodes are the upper limits of normal in size. Axilla: There is no evidence of pathologic axillary lymphadenopathy Upper abdomen: There are multiple hepatic masses. These include 2 left lobe masses measuring 6 cm and 4.6 cm respectively. There is also a 5.3 cm right lobe hepatic mass. Skeletal structures: There are multiple sclerotic lesions suspicious for metastatic disease. IMPRESSION: 1. Multiple sclerotic skeletal lesions, suspicious for metastasis 2. Multiple liver masses highly suspicious for metastasis 3. No findings to indicate a lung primary" CT abdomen/pelvis radiology impressions "1. Findings are consistent with multifocal hepatic metastatic disease. 2. There is multifocal osteoblastic metastatic disease. 3. There is a large irregular soft tissue lesion identified in the right presacral/precoccygeal region along the posterior right aspect of the rectum. This is also concerning for neoplasm. 4. An indeterminant 3.8 cm lesion is noted in the right ovary. Consider pelvic ultrasound in follow-up. 5. No acute infectious or inflammatory findings are identified in the abdomen or pelvis." Pelvic/Transvaginal ultrasound radiology impressions "1. No acute sonographic abnormality is identified in the pelvis. 2. There is a 2.9 cm simple appearing cystic lesion in the right ovary with adjacent calcifications. This is of low suspicion. A precautionary 6 month follow-up examination is recommended to document stability/resolution." Ultrasound guided 22-gauge aspiration of 3.5 cm left hepatic lobe mass performed on 09/01/17 Labs Carcinoembryonic Antigen: 1.6 CA-125: 6 Hospital Course: Patient initially presented to the hospital for back pain symptoms and pain on the right thigh. On imaging she was found to have multiple bony lesions suspicious for metastatic disease, multiple liver lesions also suspicious for metastatic disease, pre sacral soft tissue mass. Also right ovary cyst. Patient has been evaluated by gastroenterology who recommended that ultrasound guided liver aspiration of hepatic lesion for pathology review. Patient also seen by medical oncology, radiation oncology who has the patient undergo radiation simulation on 09/01/17 for possible future radiation treatments Patient to be discharged to home with Follow up Appointments: 09/07/2017 10:30 AM Aisha Bello DO [facility] 09/08/2017 1:45 PM Matias Hutchins MD Hematology/Oncology [facility] Patient will also have followup with Radiation Oncology at [facility] Vital Signs: Date Time Temp Pulse Resp B/P (MAP) Pulse Ox O2 Delivery O2 Flow Rate FiO2 09/01/17 11:23 36.4 68 20 150/87 (108) 94 09/01/17 10:53 36.4 60 20 133/88 (103) 91 Room Air 09/01/17 10:24 36.3 65 20 134/82 (99) 92 Room Air 09/01/17 09:49 36.2 69 18 150/84 (106) 92 Room Air 09/01/17 08:00 Room Air 09/01/17 07:11 36.7 69 18 142/84 (103) 94 Room Air 09/01/17 03:10 36.9 63 18 144/90 (108) 95 Room Air 09/01/17 00:00 Room Air 08/31/17 23:14 37.1 68 16 162/94 (116) 93 Room Air 08/31/17 21:25 71 161/88 (112) 08/31/17 20:00 Room Air 08/31/17 19:33 37.1 76 20 176/90 (118) 91 Room Air 08/31/17 15:32 36.8 71 18 168/96 (120) 93 Room Air 08/31/17 15:20 Room Air Lab Results: Results Past 24 Hours Test 08/31/17 16:38 08/31/17 20:05 09/01/17 07:36 09/01/17 07:41 Range/Units Bedside Glucose 104 153 121 127 70-90 mg/dl Test 09/01/17 11:27 Range/Units Bedside Glucose 138 70-90 mg/dl
[2017-09-01] MEDS ORDERED: MISC-573 (13:45)
--- NOTE | 2017-09-01 13:47 | Discharge Instructions ---
Discharge Instructions Date of Service Sep 01, 2017. Admission Reason for Admission: Malignancy Discharge Discharge Diagnosis / Problem: right thigh pain, likely metastatic cancer Discharge Goals Goal(s): Improve function, Improve disease control Activity Recommendations Activity Limitations: per Instructions/Follow-up section Shower/Bathe: no limitations . Instructions / Follow-Up Instructions / Follow-Up Hospital Imaging results Lumbar Spine MRI radiology impressions "1. Innumerable enhancing skeletal lesions which are highly suggestive of metastatic disease. Myeloma or lymphoma could appear similar although are considered less likely. Correlation with known primary malignancy is recommended. No epidural extension of tumor. Slight loss of height of the superior endplate of L2. Possible slight extension into the left L5-S1 neural foramen. 2. Mild to moderate multilevel degenerative changes, as described above." Lower Extremity CT "Soft tissues of the right thigh within normal limits. Vasculature patent. No lymphadenopathy. Few vague sclerotic lesions suggested in the pelvis, which are marked on the images. Degenerative changes of the right hip joint with joint space loss most severe posteriorly, where there is the greatest degree of cystic change in the acetabulum. Vague sclerotic lesion noted at the basicervical region of the right femoral neck as well as within the medullary cavity of the diaphysis. At one of these sites in the mid to distal diaphysis, there is associated minimal irregularity and erosion of the inner aspect of the cortex (series 10 image 301) . No evidence of a fracture. No periosteal reaction or full-thickness erosion of the cortex. Additional sclerotic lesion noted in the medial metadiaphysis. No acute fracture or subluxation. No knee joint effusion. IMPRESSION: 1. Multiple vague sclerotic lesions in the pelvis and right femur concerning for osseous metastatic disease. 2. Degenerative changes of the right hip." CT Chest "Thyroid: There is a 7 mm right lobe thyroid nodule. Thoracic aorta: The thoracic aorta is normal in course and caliber, noting standard 3-vessel arch anatomy. No aneurysm or dissection is seen. Pulmonary vasculature: The pulmonary trunk is normal in caliber. There are no central filling defects identified to suggest pulmonary embolus. Note that this examination was not protocoled for the evaluation of pulmonary emboli. HEART: The heart is normal in size and configuration, without pericardial effusion. Lungs and pleural spaces: There are dependent atelectatic changes. There is a 19 mm left lower lobe lung cyst. There is no focal pulmonary consolidation. Mediastinum: Mediastinal lymph nodes are the upper limits of normal in size. [place]: Hilar lymph nodes are the upper limits of normal in size. Axilla: There is no evidence of pathologic axillary lymphadenopathy Upper abdomen: There are multiple hepatic masses. These include 2 left lobe masses measuring 6 cm and 4.6 cm respectively. There is also a 5.3 cm right lobe hepatic mass. Skeletal structures: There are multiple sclerotic lesions suspicious for metastatic disease. IMPRESSION: 1. Multiple sclerotic skeletal lesions, suspicious for metastasis 2. Multiple liver masses highly suspicious for metastasis 3. No findings to indicate a lung primary" CT abdomen/pelvis radiology impressions "1. Findings are consistent with multifocal hepatic metastatic disease. 2. There is multifocal osteoblastic metastatic disease. 3. There is a large irregular soft tissue lesion identified in the right presacral/precoccygeal region along the posterior right aspect of the rectum. This is also concerning for neoplasm. 4. An indeterminant 3.8 cm lesion is noted in the right ovary. Consider pelvic ultrasound in follow-up. 5. No acute infectious or inflammatory findings are identified in the abdomen or pelvis." Pelvic/Transvaginal ultrasound radiology impressions "1. No acute sonographic abnormality is identified in the pelvis. 2. There is a 2.9 cm simple appearing cystic lesion in the right ovary with adjacent calcifications. This is of low suspicion. A precautionary 6 month follow-up examination is recommended to document stability/resolution." Ultrasound guided 22-gauge aspiration of 3.5 cm left hepatic lobe mass performed on 09/01/17 Labs Carcinoembryonic Antigen: 1.6 CA-125: 6 Hospital Course: Patient initially presented to the hospital for back pain symptoms and pain on the right thigh. On imaging she was found to have multiple bony lesions suspicious for metastatic disease, multiple liver lesions also suspicious for metastatic disease, pre sacral soft tissue mass. Also right ovary cyst. Patient has been evaluated by gastroenterology who recommended that ultrasound guided liver aspiration of hepatic lesion for pathology review. Patient also seen by medical oncology, radiation oncology who has the patient undergo radiation simulation on 09/01/17 for possible future radiation treatments Patient to be discharged to home with Follow up Appointments: 09/07/2017 10:30 AM Aisha Bello DO [facility] 09/08/2017 1:45 PM Matias Hutchins MD Hematology/Oncology [facility] Patient will also have followup with Radiation Oncology at [facility] Current Hospital Diet Patient's current hospital diet: Diabetes Type 2 Diet, AHA Diet (Heart Healthy) Discharge Diet Recommended Diet: AHA Diet (Heart Healthy), Diabetes Type 2 Diet Pending Studies Studies pending at discharge: no Laboratory Results 08/31/17 05:53 Red Blood Count 4.73, Mean Corpuscular Volume 84.4, Mean Corpuscular Hemoglobin 28.8, Mean Corpuscular Hemoglobin Concent 34.1, Mean Platelet Volume 9.2, Neutrophils (%) (Auto) 60.6, Lymphocytes (%) (Auto) 29.6, Monocytes (%) (Auto) 8.1, Eosinophils (%) (Auto) 0.9, Basophils (%) (Auto) 0.4, Neutrophils # (Auto) 6.33, Lymphocytes # (Auto) 3.09, Monocytes # (Auto) 0.85, Eosinophils # (Auto) 0.09, Basophils # (Auto) 0.04 08/31/17 05:53 Test 08/30/17 19:10 08/31/17 00:07 08/31/17 05:53 08/31/17 12:05 Total Bilirubin 0.2 mg/dl (0.2-1) Aspartate Amino Transf (AST/SGOT) 46 U/L (15-37) Alanine Aminotransferase (ALT/SGPT) 22 U/L (12-78) Alkaline Phosphatase 176 U/L (45-117) Total Protein 8.0 gm/dl (6.4-8.2) Albumin 3.6 gm/dl (3.4-5.0) Globulin 4.4 gm/dl (2.5-4.0) Albumin/Globulin Ratio 0.8 (0.9-2) Lipase 271 U/L (73-393) Urine Color YELLOW Urine Appearance CLEAR (CLEAR) Urine pH 5.0 (4.5-7.5) Urine Specific [place] > 1.045 (1.000-1.030) Urine Protein NEG (NEG) Urine Glucose (UA) NEG (NEG) Urine Ketones NEG (NEG) Urine Occult Blood NEG (NEG) Urine Nitrite NEG (NEG) Urine Bilirubin NEG (NEG) Urine Urobilinogen NEG (NEG) Urine Leukocyte Esterase NEG (NEG) White Blood Count 10.44 K/uL (4.8-10.8) Red Blood Count 4.73 M/uL (4.2-5.4) Hemoglobin 13.6 g/dL (12.0-16.0) Hematocrit 39.9 % (37-47) Mean Corpuscular Volume 84.4 fL (80-100) Mean Corpuscular Hemoglobin 28.8 pg (25-34) Mean Corpuscular Hemoglobin Concent 34.1 g/dl (32-36) Platelet Count 340 K/uL (130-400) Mean Platelet Volume 9.2 fL (7.4-10.4) Neutrophils (%) (Auto) 60.6 % Lymphocytes (%) (Auto) 29.6 % Monocytes (%) (Auto) 8.1 % Eosinophils (%) (Auto) 0.9 % Basophils (%) (Auto) 0.4 % Neutrophils # (Auto) 6.33 K/uL (1.4-6.5) Lymphocytes # (Auto) 3.09 K/uL (1.2-3.4) Monocytes # (Auto) 0.85 K/uL (0.11-0.59) Eosinophils # (Auto) 0.09 K/uL (0-0.5) Basophils # (Auto) 0.04 K/uL (0-0.2) RDW Standard Deviation 39.5 fL (36.4-46.3) RDW Coefficient of Variation 12.9 % (11.5-14.5) Immature Granulocyte % (Auto) 0.4 % Immature Granulocyte # (Auto) 0.04 K/uL (0.00-0.02) Prothrombin Time 10.9 SECONDS (9.0-12.0) Prothromb Time International Ratio 1.0 (0.9-1.1) Anion Gap 8.0 mmol/L (3-11) Est Creatinine Clear Calc Drug Dose 126.0 ml/min Estimated GFR () 117.7 Estimated GFR (Non- 101.6 BUN/Creatinine Ratio 15.3 (10-20) Calcium Level 8.7 mg/dl (8.5-10.1) Total Creatine Kinase 181 U/L (26-192) Carcinoembryonic Antigen 1.6 ng/ml (0-2.5) CA 125 Antigen 6 U/ML (<35) Test 09/01/17 11:27 Bedside Glucose 138 mg/dl (70-90) Medical Emergencies . Who to Call and When: Medical Emergencies: If at any time you feel your situation is an emergency, please call 911 immediately. . Non-Emergent Contact Non-Emergency issues call your: Primary Care Provider, Oncologist . . "Provider Documentation" section prepared by Jalil Pulido. .
--- NOTE | 2017-09-01 16:15 | Discharge Summary ---
Discharge Summary Date of Service Sep 01, 2017. Discharge Summary Admission Date: Aug 31, 2017 at 11:30 Discharge Date: Sep 01, 2017 Discharge Disposition: Home Principal Diagnosis: pain on the right thigh. multiple bony lesions suspicious for metastatic disease , multiple liver lesions also suspicious for metastatic disease, pre sacral soft tissue mass. right ovary cyst Medication Reconciliation New Medications: Misc. Devices (Roller Walker) 1 Mis Mis UNIT, #1 Tramadol HCl (Tramadol HCl) 50 Mg Tab 25-50 MG PO Q6H PRN for Pain for 5 Days, #20 TAB Continued Medications: Atorvastatin (Lipitor) 10 Mg Tab 10 MG PO DAILY, TAB Discontinued Medications: Doxycycline Monohydrate (Monodox) 100 Mg Cap 100 MG PO BID, CAP BEGIN 08/25/17 X 21 DAYS Admission Information HPI (per Admitting provider): Patient has had vague back pain symptoms for about a month or two. Last week, she had achy pain on the right thigh, sometimes going to her back. No weakness. No urinary/bowel incontinence. Low-grade fever. Pain worse with motion. No unusual headaches. Intentional weight loss of about 9 pounds in the last few months. Seen at the Emergency Room last week. LE Venous Dopplers negative for clot. Back x-ray, mild degenerative change. Lyme screen equivocal, hx tick bite from some time ago. Patient prescribed Doxycycline. At home, worsening pain in the right thigh, achy, sharp. Physical Exam (per Admitting): PHYSICAL EXAMINATION: VITAL SIGNS: Blood pressure was noted to be 194/92 later 180/80, WA 90, RR 18 T 37, O2 sats 96 on room air. GENERAL: Noted to be pleasant, slightly uncomfortable, no respiratory distress. Obese. SKIN: Normal color, warm. HEENT: [place] palpebral conjunctivae. No ptosis. Dry mucosa. NECK: Short, supple, nontender. CHEST: Clear to auscultation. No tenderness. HEART: Regular rate and rhythm, no murmur. ABDOMEN: Some distention, non tender. BACK: Minimal mid back tenderness. EXTREMITIES: Tenderness, right thigh. Right thigh slightly bigger than the left, no other gross deformity. NEUROLOGIC: Coherent, no gross focality. Hospital Course Hospital Imaging results Lumbar Spine MRI radiology impressions "1. Innumerable enhancing skeletal lesions which are highly suggestive of metastatic disease. Myeloma or lymphoma could appear similar although are considered less likely. Correlation with known primary malignancy is recommended. No epidural extension of tumor. Slight loss of height of the superior endplate of L2. Possible slight extension into the left L5-S1 neural foramen. 2. Mild to moderate multilevel degenerative changes, as described above." Lower Extremity CT "Soft tissues of the right thigh within normal limits. Vasculature patent. No lymphadenopathy. Few vague sclerotic lesions suggested in the pelvis, which are marked on the images. Degenerative changes of the right hip joint with joint space loss most severe posteriorly, where there is the greatest degree of cystic change in the acetabulum. Vague sclerotic lesion noted at the basicervical region of the right femoral neck as well as within the medullary cavity of the diaphysis. At one of these sites in the mid to distal diaphysis, there is associated minimal irregularity and erosion of the inner aspect of the cortex (series 10 image 301) . No evidence of a fracture. No periosteal reaction or full-thickness erosion of the cortex. Additional sclerotic lesion noted in the medial metadiaphysis. No acute fracture or subluxation. No knee joint effusion. IMPRESSION: 1. Multiple vague sclerotic lesions in the pelvis and right femur concerning for osseous metastatic disease. 2. Degenerative changes of the right hip." CT Chest "Thyroid: There is a 7 mm right lobe thyroid nodule. Thoracic aorta: The thoracic aorta is normal in course and caliber, noting standard 3-vessel arch anatomy. No aneurysm or dissection is seen. Pulmonary vasculature: The pulmonary trunk is normal in caliber. There are no central filling defects identified to suggest pulmonary embolus. Note that this examination was not protocoled for the evaluation of pulmonary emboli. HEART: The heart is normal in size and configuration, without pericardial effusion. Lungs and pleural spaces: There are dependent atelectatic changes. There is a 19 mm left lower lobe lung cyst. There is no focal pulmonary consolidation. Mediastinum: Mediastinal lymph nodes are the upper limits of normal in size. [place]: Hilar lymph nodes are the upper limits of normal in size. Axilla: There is no evidence of pathologic axillary lymphadenopathy Upper abdomen: There are multiple hepatic masses. These include 2 left lobe masses measuring 6 cm and 4.6 cm respectively. There is also a 5.3 cm right lobe hepatic mass. Skeletal structures: There are multiple sclerotic lesions suspicious for metastatic disease. IMPRESSION: 1. Multiple sclerotic skeletal lesions, suspicious for metastasis 2. Multiple liver masses highly suspicious for metastasis 3. No findings to indicate a lung primary" CT abdomen/pelvis radiology impressions "1. Findings are consistent with multifocal hepatic metastatic disease. 2. There is multifocal osteoblastic metastatic disease. 3. There is a large irregular soft tissue lesion identified in the right presacral/precoccygeal region along the posterior right aspect of the rectum. This is also concerning for neoplasm. 4. An indeterminant 3.8 cm lesion is noted in the right ovary. Consider pelvic ultrasound in follow-up. 5. No acute infectious or inflammatory findings are identified in the abdomen or pelvis." Pelvic/Transvaginal ultrasound radiology impressions "1. No acute sonographic abnormality is identified in the pelvis. 2. There is a 2.9 cm simple appearing cystic lesion in the right ovary with adjacent calcifications. This is of low suspicion. A precautionary 6 month follow-up examination is recommended to document stability/resolution." Ultrasound guided 22-gauge aspiration of 3.5 cm left hepatic lobe mass performed on 09/01/17 Labs Carcinoembryonic Antigen: 1.6 CA-125: 6 Hospital Course: Patient initially presented to the hospital for back pain symptoms and pain on the right thigh. On imaging she was found to have multiple bony lesions suspicious for metastatic disease, multiple liver lesions also suspicious for metastatic disease, pre sacral soft tissue mass. Also right ovary cyst. Patient has been evaluated by gastroenterology who recommended that ultrasound guided liver aspiration of hepatic lesion for pathology review. Patient also seen by medical oncology, radiation oncology who has the patient undergo radiation simulation on 09/01/17 for possible future radiation treatments Patient to be discharged to home with Follow up Appointments: 09/07/2017 10:30 AM Aisha Bello DO Family Practice [facility] 09/08/2017 1:45 PM Matias Hutchins MD Hematology/Oncology [facility] Patient will also have followup with Radiation Oncology at [facility] Total time spent on discharge = 40 minutes This includes examination of the patient, discharge planning, medication reconciliation, and communication with other providers. Discharge Instructions see above
== END 2017-09-01 15:18 | disposition home or self-care (01) | DRG 543 ==
LOC: C.EDB 17:58 → C.4E 22:33 → ENRESERV 22:43 → OBSVTOIN 08-31 11:30
PROVIDERS: ADMIT Hospitalist; ATTEND Hospitalist
PROC: 0F923ZX Drainage of Left Lobe Liver, Percutaneous Approach, Diagnostic (ICD-10-PCS; principal; 2017-09-01)
DX: C79.51 Secondary malignant neoplasm of bone (principal); C78.7 Secondary malignant neoplasm of liver and intrahepatic bile duct; A69.20 Lyme disease, unspecified; G89.3 Neoplasm related pain (acute) (chronic); R93.3 Abnormal findings on diagnostic imaging of other parts of digestive tract; N83.201 Unspecified ovarian cyst, right side; I10 Essential (primary) hypertension; E78.5 Hyperlipidemia, unspecified; E11.9 Type 2 diabetes mellitus without complications; Z79.899 Other long term (current) drug therapy; Z90.49 Acquired absence of other specified parts of digestive tract; Z98.51 Tubal ligation status; Z83.3 Family history of diabetes mellitus; Z82.49 Family history of ischemic heart disease and other diseases of the circulatory system

== ENCOUNTER → 2017-09-06 | Outpatient (CLI) | payer OTHER ==
[~2017-09-06] MED LIST changes: +ATOR10TA82 PO; -DOXY-300 PO; +MISC-573; +ULT50X PO
== END | disposition home or self-care (01) ==
LOC: C.ONC 11:45
PROVIDERS: ATTEND Physician Assistant Medical
DX: Z51.0 Encounter for antineoplastic radiation therapy (principal); C7A.8 Other malignant neuroendocrine tumors